=== PATIENT | female | born 1980 | race Caucasian/White ===

== ENCOUNTER → 2017-03-21 | Outpatient (CLI) | payer BC ==
[~2017-03-21] MED LIST: NRT1/35 PO; ONDA4TAB46 PO
--- NOTE | 2017-03-24 07:44 | MAMMOGRAPHY REPORT ---
BILATERAL DIGITAL DIAGNOSTIC MAMMOGRAM TOMOSYNTHESIS WITH CAD AND TARGETED RIGHT ULTRASOUND: 7 CLINICAL HISTORY: The patient reports right superior breast pain for approximately one month. She de nies any palpable lumps or nipple discharge, or other complaints. TECHNIQUE: Breast tomosynthesis in addition to standard 2D mammography was performed. Current study was also evaluated with a Computer Aided Detection (CAD) system. Right CC and MLO 2-D and tomosynthe sis images were obtained. COMPARISON: No prior exams were available for comparison. BREAST COMPOSITION: The tissue of both breasts is heterogeneously dense, which may obscure small mas ses. FINDINGS: There are no suspicious masses, calcifications, or areas of architectural distortion noted in either breast. A few scattered benign-appearing punctate calcifications are noted within the lef t upper outer quadrant. Focal asymmetry in the right upper outer quadrant has the appearance of norm al fibroglandular tissue on the tomosynthesis images. Targeted ultrasound was performed of the area of pain pointed out by the patient, involving the right 11 to 12:00 breast extending from the far superior breast down to the nipple. The background echote xture is markedly heterogeneous, which somewhat decreases the sensitivity of the exam. No suspicious masses or other suspicious sonographic abnormalities were evident in this region on ultrasound. IMPRESSION: ACR BI-RADS CATEGORY 2: BENIGN, TARGETED ULTRASOUND ACR BI-RADS CATEGORY 2: BENIGN No suspicious mammographic or sonographic abnormality to explain right breast pain. There is no mamm ographic or targeted sonographic evidence of malignancy. Recommend clinical follow-up for right aaron st pain, and recommend routine bilateral screening mammograms starting at the age of 40 unless otherw ise clinically indicated. The patient has been verbally notified of the results. Approximately 10% of breast cancers are not detected with mammography. A negative mammographic report should not delay biopsy if a clinically suggestive mass is present. Aviva Alicea M.D. /:03/21/2017 13:58:51 Commercial Housekeeper: Ingrid KOVACS(Marnie)(M), [facility] letter sent: Normal 1/2 BI-RADS Code: ACR BI-RADS Category 2: Benign Ultrasound BI-RADS: ACR BI-RADS Category 2: Benign
== END | disposition home or self-care (01) ==
LOC: C.MAMM 13:15
PROVIDERS: ATTEND Physician Assistant
DX: N64.4 Mastodynia (principal)

== ENCOUNTER → 2017-05-07 | Outpatient (CLI) | payer BC ==
--- NOTE | 2017-05-07 18:29 | DIAGNOSTIC IMAGING REPORT ---
CHEST 2 VIEWS ROUTINE CLINICAL HISTORY: R07.89, R05 chest pain. Dyspnea. COMPARISON STUDY: 10/02/2015 FINDINGS: The bones soft tissues and hemidiaphragms are normal. The cardiomediastinal silhouette is normal. The lungs are clear. The pulmonary vasculature is normal. IMPRESSION: Negative chest. The above report was generated using voice recognition software. It may contain grammatical, syntax or spelling errors. Electronically signed by: Cl Ledesma M.D. 05/07/2017 6:28 PM Dictated Date/Time: 05/07/2017 6:28 PM
== END | disposition home or self-care (01) ==
LOC: C.RAD 18:03
PROVIDERS: ATTEND Physician Assistant Surgical
DX: R07.89 Other chest pain (principal); R05 Cough

== ENCOUNTER → 2017-08-06 | Outpatient (CLI) | payer BC | END | disposition home or self-care (01) | LOC: C.PAPS 13:52 | PROVIDERS: ATTEND Obstetrics & Gynecology | DX: Z01.419 Encounter for gynecological examination (general) (routine) without abnormal findings (principal) ==

== ENCOUNTER 2022-06-15 13:50 | Inpatient (IN) ==
[2022-06-15] MEDS ORDERED: SODIUM CHLORIDE 0.9% 500 ML IV STA (13:58)
[2022-06-15] MEDS ORDERED: ONDANSETRON INJ 2 MG/ML 2 ML VIAL IV STA ×3 (13:58→18:12)
[2022-06-15 14:57] LABS: Basophils # (auto) 0.08 K/uL (0-0.2); Basophils % (auto) 0.3 %; Eosinophils # (auto) 0.06 K/uL (0-0.50); Eosinophils % (auto) 0.3 %; Hematocrit (blood only) 52.3 % (34.1-44.9); Hemoglobin 16.9 g/dl (12.0-16.0); Immature Granulocytes # (auto) 0.57 K/uL (0.00-0.02); Immature Granulocytes % (auto) 2.4 %; Lymphocytes # (auto) 3.45 K/uL (1.2-3.4); Lymphocytes % (auto) 14.7 %; Mean Corpuscular Hemoglobin 26.7 pg (25.0-34.0); Mean Corpuscular Hgb Conc 32.3 g/dL (32.0-36.0); Mean Corpuscular Volume 82.6 fL (80.0-100.0); Mean Platelet Volume 10.2 fL (9.4-12.3); Monocytes # (auto) 0.74 K/uL (0.24-0.82); Monocytes % (auto) 3.2 %; Neutrophils # (auto) 18.59 K/uL (1.4-6.5); Neutrophils % (auto) 79.1 %; Platelet Count 470 K/uL (130-400); RDW Coefficient of Variation 13.3 % (11.5-14.5); RDW Standard Deviation 39.1 fL (36.4-46.3); Red Blood Count 6.33 M/uL (3.93-5.22); White Blood Count 23.49 K/ul (4.8-10.8)
[2022-06-15 15:20] LABS: Albumin Level 4.4 gm/dl (3.4-5.0); BUN Creatinine Ratio 13.6 (10-20); Bilirubin,Total 0.6 mg/dl (0.2-1.0); Calcium 10.1 mg/dl (8.5-10.1); Creatinine Clr Calc Pharmacy 93.7 ml/min; Est GFR (African American) 93.9 ml/min; Globulin 4.2 gm/dl (2.5-4.0); Potassium 4.2 mmol/L (3.5-5.1); Total Protein 8.6 gm/dl (6.0-8.3)
[2022-06-15] MEDS ORDERED: SODIUM CHLORIDE 0.9% 1000ML 1,000 ML IV ONE (16:11)
[2022-06-15] MEDS ORDERED: MoRPHine SULFATE 10 MG/ML CARP/VIAL IV STA ×2 (16:11→18:12)
[2022-06-15] MEDS ORDERED: MoRPHine SULFATE 4 MG/ML 1 ML CARP\\VIAL ONE ×2 (16:18→18:20)
[2022-06-15] MEDS ORDERED: MoRPHine SULFATE 2 MG/ML CARP ONE ×2 (16:18→18:20)
--- NOTE | 2022-06-15 16:31 | Emergency Department Note ---
Impression & Plan Abdominal pain, Pancreatitis, Leukocytosis ED Provider Note NAME: SHRUTHI DIAZ AGE: 42 SEX: F : 1980 ARRIVES VIA: Ambulance INFORMANT: Patient ED PROVIDER(S): Missael Villegas DO CHIEF COMPLAINT: abdominal pain HPI: Patient is a 40-year-old female who presents to the ER for periumbilical abdominal pain which started around 1 PM today. She admits to history of pancreatitis. She does have a history of cholecystectomy. She admits to nausea and vomiting. She cannot keep anything down. Pain is a 9 out of 10. Radiates through to the back. Denies any dysuria, urgency, or frequency. No vaginal bleeding or vaginal discharge. No other exacerbating or remitting factors. No trauma. Pain is constant and unremitting. ROS: See above HPI for pertinent positives & negatives. A total of 10 systems reviewed and were otherwise negative. PAST MEDICAL HISTORY:See Below PAST SURGICAL HISTORY:See Below FAMILY HISTORY:See Below SOCIAL HISTORY:See Below HOME MEDICATIONS:See Below ALLERGIES:See Below VITALS:See Below PHYSICAL EXAMINATION: GENERAL: Sitting up in bed, alert, moderate distress holding abdomen EYE EXAM: normal conjunctiva. OROPHARYNX: mucous membranes are dry NECK: supple, no nuchal rigidity, no adenopathy, non-tender LUNGS: Clear to auscultation. Normal chest wall mechanics HEART: no murmurs, S1 normal and S2 normal ABDOMEN: abdomen soft, non-tender, normo-active bowel sounds, no masses, no rebound or guarding. UPPER EXTREMITIES: upper extremities are grossly normal. LOWER EXTREMITIES: No pitting edema. NEURO EXAM: Normal sensorium, cranial nerves II-XII grossly intact, normal speech, no gross weakness of arms, no gross weakness of legs. MEDICAL DECISION MAKING: Patient is a 42-year-old female who presents ER for abdominal pain associate with nausea vomiting with a history of pancreatitis that feels the same. IV was established blood work was obtained. Labs show leukocytosis of 23,000. Hemoglobin was elevated at 16 which I favor both are elevated secondary to vomiting. BMP on LFTs bilirubin was unremarkable. Lipase was normal. CT shows duodenitis versus pancreatitis I do favor as this consistent with her previous bouts of pancreatitis per the patient that is the most likely cause. She was given IV fluids and IV morphine x2. She was updated at bedside. She was given Zofran as well. She was given a dose of Rocephin due to leukocytosis although again I favor secondary from the vomiting. She was discussed with the hospitalist for further evaluation Dr. Ferris. Triage Nursing notes reviewed. Limited review of prior medical records performed Vital Signs: reviewed and remarkable for tachy Differential diagnosis: Differential diagnoses includes but is not limited to gastritis, peptic ulcer disease, GERD, gallbladder disease, pancreatitis, small bowel obstruction, acute coronary syndrome, pericarditis, ischemic bowel, irritable bowel disease, irritable bowel syndrome, appendicitis, diverticulitis, malignancy, hernia, urinary tract infection, torsion, /ectopic (if female), perforation, trauma, infectious. ER treatment provided: See below Diagnostics interpreted by me: ECG: none Cardiac Monitoring: An order was placed for continuous cardiac monitoring. The monitor shows a rate of 101 with sinus rhythm. Laboratory studies: As stated above and show below. Imaging studies: CT abdomen pelvis as described above Consultation(s): none Procedures: none Critical Care: None Past Med/Surg History Medical History (Updated 06/15/22 @ 20:26 by Missael Villegas DO) Anxiety Chronic tonsillitis and adenoiditis H/O acute pancreatitis History of pancreatitis History of varicella IBS (irritable bowel syndrome) Obesity Sphincter of Oddi dysfunction Viral meningitis 2010 Surgical History (Updated 06/15/22 @ 18:17 by Abi Moreira PA-C) H/O endoscopic retrograde cholangiopancreatography H/O oral surgery WISDOM TEETH History of colonoscopy History of esophagogastroduodenoscopy (EGD) History of oophorectomy History of tonsillectomy and adenoidectomy 08/30/21-Dr. Becker History of tubal ligation S/P cholecystectomy HX Family History Grandfather (Paternal) Pancreatic cancer Mother Diabetes COPD (chronic obstructive pulmonary disease) Kidney failure Heart failure Father Coronary heart disease Denies family history of Ovarian cancer Breast cancer Colorectal cancer Social History Smoking Status: Never smoker Second Hand Exposure: No; Hx Alcohol Use: Yes Alcohol type: beer and wine Hx Substance Use: No Preferred Language: Somali Communication Ability: Effective Wire Rope Sling Maker Required: No Beliefs That Will Affect Care: None Current Living Situation: Spouse and Family Feels Safe at Home: Yes Assistive Devices: Contacts and Glasses Allergies Allergies Allergy/AdvReac Type Severity Reaction Status Date / Time chlordiazepoxide Allergy Intermediate facial Verified 10/23/21 13:09 swelling latex Allergy Intermediate ITCHING Verified 10/23/21 13:09 AND SKIN REDNESS ranitidine Allergy Intermediate facial Verified 10/23/21 13:09 swelling egg Allergy Unknown PT UNSURE Verified 10/23/21 13:09 REACTION ; TESTED + EGG ALLERGY ON ALLERGY TESTING piperacillin Allergy Unknown PT UNSURE Verified 10/23/21 13:09 ABOUT THIS, NOT SURE IF ALLERGIC tazobactam Allergy Unknown PT UNSURE Verified 10/23/21 13:09 ABOUT THIS, NOT SURE IF ALLERGIC erythromycin base AdvReac Mild GI UPSET Verified 10/23/21 13:09 Home Meds Home Medications Medication Instructions Recorded Confirmed escitalopram oxalate 10 mg tablet 20 mg PO QPM 10/13/19 06/15/22 (Lexapro) multivitamin 1 cap PO QAM 08/15/21 06/15/22 Lactobacillus acidophilus 10 10,000 mmu cells PO DAILY 06/15/22 06/15/22 billion cell capsule (Probiotic) Results & Data (ED) Vital Signs Vital Signs - 24 hr 06/15/22 13:56 06/15/22 14:54 06/15/22 15:17 Temperature 37.2 C Temperature Source Oral Pulse Rate 118 H Pulse Rate [Apical] 106 H 96 H Pulse Rhythm Regular Pulse Rhythm [Apical] Regular Pulse Strength Normal Pulse Strength [Apical] Normal Respiratory Rate 20 22 18 Respiratory Effort / Characteristics Non-Labored Spontaneous Non-Labored Spontaneous Respiratory Depth Normal Normal Respiratory Pattern Regular Regular Blood Pressure 132/88 Blood Pressure [Right Arm] 133/105 H 131/98 Blood Pressure Mean 102 Blood Pressure Mean [Right Arm] 114 109 Blood Pressure Position Sitting Blood Pressure Position [Right Arm] Sitting Pulse Oximetry 96 98 99 Oxygen Delivery Method Room Air Room Air Room Air Sepsis Recent Fever Within 48 Hours No Sepsis New/Unexplained Change in Mental Status No Sepsis Action Taken by Nursing No Action Required 06/15/22 16:02 06/15/22 16:26 06/15/22 17:21 Temperature Temperature Source Pulse Rate Pulse Rate [Apical] 108 H 108 H 116 H Pulse Rhythm Pulse Rhythm [Apical] Pulse Strength Pulse Strength [Apical] Respiratory Rate 18 18 20 Respiratory Effort / Characteristics Respiratory Depth Respiratory Pattern Blood Pressure Blood Pressure [Right Arm] 123/93 123/93 139/91 Blood Pressure Mean Blood Pressure Mean [Right Arm] 103 103 107 Blood Pressure Position Blood Pressure Position [Right Arm] Pulse Oximetry 98 98 96 Oxygen Delivery Method Room Air Room Air Room Air Sepsis Recent Fever Within 48 Hours Sepsis New/Unexplained Change in Mental Status Sepsis Action Taken by Nursing 06/15/22 18:09 Temperature Temperature Source Pulse Rate Pulse Rate [Apical] 104 H Pulse Rhythm Pulse Rhythm [Apical] Pulse Strength Pulse Strength [Apical] Respiratory Rate 18 Respiratory Effort / Characteristics Respiratory Depth Respiratory Pattern Blood Pressure Blood Pressure [Right Arm] 123/73 Blood Pressure Mean Blood Pressure Mean [Right Arm] 89 Blood Pressure Position Blood Pressure Position [Right Arm] Pulse Oximetry 96 Oxygen Delivery Method Room Air Sepsis Recent Fever Within 48 Hours Sepsis New/Unexplained Change in Mental Status Sepsis Action Taken by Nursing Laboratory Data Result diagrams: 06/15/22 14:30 06/15/22 14:30 Lab Results 06/15/22 06/15/22 06/15/22 Range/Units 14:30 14:30 16:25 WBC 23.49 H (4.8-10.8) K/ul RBC 6.33 H (3.93-5.22) M/uL Hgb 16.9 H (12.0-16.0) g/dl Hct 52.3 H (34.1-44.9) % MCV 82.6 (80.0-100.0) fL MCH 26.7 (25.0-34.0) pg MCHC 32.3 (32.0-36.0) g/dL RDW Std Deviation 39.1 (36.4-46.3) fL RDW Coeff of Ann Marie 13.3 (11.5-14.5) % Plt Count 470 H (130-400) K/uL MPV 10.2 (9.4-12.3) fL Immature Gran % (Auto) 2.4 % Neut % (Auto) 79.1 % Lymph % (Auto) 14.7 % Pershing % (Auto) 3.2 % Eos % (Auto) 0.3 % Baso % (Auto) 0.3 % Neut # (Auto) 18.59 H (1.4-6.5) K/uL Lymph # (Auto) 3.45 H (1.2-3.4) K/uL Pershing # (Auto) 0.74 (0.24-0.82) K/uL Eos # (Auto) 0.06 (0-0.50) K/uL Baso # (Auto) 0.08 (0-0.2) K/uL Immature Gran # (Auto) 0.57 H (0.00-0.02) K/uL Sodium 136 (136-145) mmol/L Potassium 4.2 (3.5-5.1) mmol/L Chloride 100 (98-107) mmol/L Carbon Dioxide 26 (21-32) mmol/L Anion Gap 10 (3-11) BUN 12 (6-23) mg/dl Creatinine 0.88 (0.6-1.2) mg/dl Est Cr Clr Drug Dosing 93.7 ml/min Est GFR ( Amer) 93.9 ml/min Est GFR (Non-Af Amer) 81.0 ml/min BUN/Creatinine Ratio 13.6 (10-20) Glucose 136 H (70-99(Fasting)) mg/dl Lactate (0.4-2.0) mmol/L Calcium 10.1 (8.5-10.1) mg/dl Total Bilirubin 0.6 (0.2-1.0) mg/dl AST 26 (13-39) U/L ALT 28 (7-52) U/L Alkaline Phosphatase 116 H (34-104) U/L Total Protein 8.6 H (6.0-8.3) gm/dl Albumin 4.4 (3.4-5.0) gm/dl Globulin 4.2 H (2.5-4.0) gm/dl Albumin/Globulin Ratio 1.0 (0.9-2) Lipase 47 (11-82) U/L Urine Color Dark Yellow Urine Appearance Cloudy A (Clear) Urine pH 5.0 (4.5-7.5) Ur Specific [place] 1.027 (1.000-1.030) Urine Protein 1+ H (Negative) Urine Glucose (UA) Negative (Negative) Urine Ketones Trace H (Negative) Urine Blood Negative (Negative) Urine Nitrite Negative (Negative) Urine Bilirubin 1+ H (Negative) Urine Urobilinogen Negative (Negative) Ur Leukocyte Esterase Trace H (Negative) Urine WBC (Auto) 1-5 (0-5) /hpf Urine RBC (Auto) 5-10 H (0-4) /hpf U Hyaline Cast (Auto) 10-30 H (0-5) /lpf U Epithel Cells (Auto) >30 H (0-5) /lpf Urine Bacteria (Auto) Negative (Negative) POC Ur Test (NEG) SARS-CoV-2, RNA, NAAT (NEGATIVE) 06/15/22 06/15/22 06/15/22 Range/Units 16:25 18:15 18:34 WBC (4.8-10.8) K/ul RBC (3.93-5.22) M/uL Hgb (12.0-16.0) g/dl Hct (34.1-44.9) % MCV (80.0-100.0) fL MCH (25.0-34.0) pg MCHC (32.0-36.0) g/dL RDW Std Deviation (36.4-46.3) fL RDW Coeff of Ann Marie (11.5-14.5) % Plt Count (130-400) K/uL MPV (9.4-12.3) fL Immature Gran % (Auto) % Neut % (Auto) % Lymph % (Auto) % Pershing % (Auto) % Eos % (Auto) % Baso % (Auto) % Neut # (Auto) (1.4-6.5) K/uL Lymph # (Auto) (1.2-3.4) K/uL Pershing # (Auto) (0.24-0.82) K/uL Eos # (Auto) (0-0.50) K/uL Baso # (Auto) (0-0.2) K/uL Immature Gran # (Auto) (0.00-0.02) K/uL Sodium (136-145) mmol/L Potassium (3.5-5.1) mmol/L Chloride (98-107) mmol/L Carbon Dioxide (21-32) mmol/L Anion Gap (3-11) BUN (6-23) mg/dl Creatinine (0.6-1.2) mg/dl Est Cr Clr Drug Dosing ml/min Est GFR ( Amer) ml/min Est GFR (Non-Af Amer) ml/min BUN/Creatinine Ratio (10-20) Glucose (70-99(Fasting)) mg/dl Lactate 0.9 (0.4-2.0) mmol/L Calcium (8.5-10.1) mg/dl Total Bilirubin (0.2-1.0) mg/dl AST (13-39) U/L ALT (7-52) U/L Alkaline Phosphatase (34-104) U/L Total Protein (6.0-8.3) gm/dl Albumin (3.4-5.0) gm/dl Globulin (2.5-4.0) gm/dl Albumin/Globulin Ratio (0.9-2) Lipase (11-82) U/L Urine Color Urine Appearance (Clear) Urine pH (4.5-7.5) Ur Specific [place] (1.000-1.030) Urine Protein (Negative) Urine Glucose (UA) (Negative) Urine Ketones (Negative) Urine Blood (Negative) Urine Nitrite (Negative) Urine Bilirubin (Negative) Urine Urobilinogen (Negative) Ur Leukocyte Esterase (Negative) Urine WBC (Auto) (0-5) /hpf Urine RBC (Auto) (0-4) /hpf U Hyaline Cast (Auto) (0-5) /lpf U Epithel Cells (Auto) (0-5) /lpf Urine Bacteria (Auto) (Negative) POC Ur Test NEG (NEG) SARS-CoV-2, RNA, NAAT NEGATIVE (NEGATIVE) Administered Medications Discontinued Medications Sodium Chloride (Nss) 500 mls @ 999 mls/hr IV .Q31M STA Stop: 06/15/22 14:28 Last Infusion: 06/15/22 15:54 Dose: 0 mls/hr Documented By: Admin: 06/15/22 14:49 Dose: 999 mls/hr Documented By: HUMBERTO Sodium Chloride (Nss 1000ml) 1,000 mls @ 999 mls/hr IV .Q1H1M ONE Stop: 06/15/22 17:11 Last Infusion: 06/15/22 18:11 Dose: 0 mls/hr Documented By: Admin: 06/15/22 16:22 Dose: 999 mls/hr Documented By: MAIRA Ceftriaxone Sodium (Rocephin) 2,000 mg in 70 mls @ 140 mls/hr IV NOW STA Stop: 06/15/22 18:23 Last Admin: 06/15/22 20:01 Dose: Not Given Documented By: KENTRELL Metronidazole (Flagyl) 500 mg in 100 mls @ 100 mls/hr IV ONE ONE Stop: 06/15/22 20:14 Last Admin: 06/15/22 20:01 Dose: 100 mls/hr Documented By: KENTRELL Ioversol (Optiray 350 100ml) 89 ml IV ONCE ONE Stop: 06/15/22 16:34 Last Admin: 06/15/22 16:33 Dose: 89 ml Documented By: KOSTAS Morphine Sulfate (Morphine Sulfate 10 Mg/Ml Carp/Vial) 6 mg IV NOW STA Stop: 06/15/22 16:12 Last Admin: 06/15/22 16:22 Dose: Not Given Documented By: MAIRA Morphine Sulfate (Morphine Sulfate 4 Mg/Ml 1 Ml Carp\Vial) Confirm Administered Dose 4 mg .ROUTE .STK-MED ONE Stop: 06/15/22 16:19 Last Admin: 06/15/22 16:22 Dose: 4 mg Documented By: MAIRA Morphine Sulfate (Morphine Sulfate 2 Mg/Ml Carp) Confirm Administered Dose 2 mg .ROUTE .STK-MED ONE Stop: 06/15/22 16:19 Last Admin: 06/15/22 16:22 Dose: 2 mg Documented By: MAIRA Morphine Sulfate (Morphine Sulfate 10 Mg/Ml Carp/Vial) 6 mg IV NOW STA Stop: 06/15/22 18:13 Last Admin: 06/15/22 18:22 Dose: Not Given Documented By: MAIRA Morphine Sulfate (Morphine Sulfate 4 Mg/Ml 1 Ml Carp\Vial) Confirm Administered Dose 4 mg .ROUTE .STK-MED ONE Stop: 06/15/22 18:21 Last Admin: 06/15/22 18:22 Dose: 4 mg Documented By: MAIRA Morphine Sulfate (Morphine Sulfate 2 Mg/Ml Carp) Confirm Administered Dose 2 mg .ROUTE .STK-MED ONE Stop: 06/15/22 18:21 Last Admin: 06/15/22 18:22 Dose: 2 mg Documented By: MAIRA Ondansetron HCl (Ondansetron Inj 2 Mg/Ml 2 Ml Vial) 4 mg IV NOW STA Stop: 06/15/22 13:59 Last Admin: 06/15/22 14:49 Dose: 4 mg Documented By: HUMBERTO Ondansetron HCl (Ondansetron Inj 2 Mg/Ml 2 Ml Vial) 4 mg IV NOW STA Stop: 06/15/22 16:12 Last Admin: 06/15/22 16:22 Dose: 4 mg Documented By: MAIRA Ondansetron HCl (Ondansetron Inj 2 Mg/Ml 2 Ml Vial) 4 mg IV NOW STA Stop: 06/15/22 18:13 Last Admin: 06/15/22 18:22 Dose: 4 mg Documented By: MAIRA Imaging Data Radiologist's Impression: Abdomen/Pelvis CT 06/15/22 16:11 CT abd pelvis IV con only CLINICAL HISTORY: ? Pancreatitis TECHNIQUE: Helical axial images of the abdomen and pelvis were obtained and d isplayed. Automated dose lowering techniques and/or adjustment according to patient size were utilized for this exam. This exam was performed with intravenous contrast. CT DOSE: 780.54 mGy.cm COMPARISON: Comparison is made to CT abdomen pelvis 12/31/2013 FINDINGS: Lower chest: No acute abnormality Liver: Unremarkable. No focal lesions are seen. Gallbladder and biliary tree: Patient is status post cholecystectomy. No intra- or extrahepatic biliary ductal dilation. Pancreas: The pancreatic body and tail are unremarkable. No definite edema is seen in the pancreatic head. Spleen: Unremarkable. Adrenals: Unremarkable. Kidneys and ureters: Unremarkable. Bladder: Limited evaluation due to underdistention. Reproductive organs: Unremarkable. Bowel: Unremarkable appearance of the bowel. The appendix is normal. There is hypoenhancement and questionable prominence of the duodenal wall, similar in appearance to prior exam. Lymph nodes Retroperitoneal: Unremarkable. Pelvic: Unremarkable. Mesenteric: Unremarkable. Peritoneum: Trace pelvic free fluid is seen. Fat stranding is seen in the region of the duodenum. Vessels: Unremarkable. Abdominal wall: Unremarkable. Bones: Minimal osteophyte formation is noted. IMPRESSION: 1. Nonspecific trace free fluid throughout the abdomen. No edema or fat stranding is seen about the pancreatic body and tail. Findings are similar nonspecific but may represent duodenitis or head pancreatitis. 2. No evidence of bowel obstruction, appendicitis, or other acute abnormality. 3. Hepatic steatosis. ACT 112: Negative or not required by law. Electronically signed by: Carlos Bradford M.D. 06/15/2022 5:24 PM Discharge Plan Visit Data Chief Complaint: Abdominal Pain Stated Complaint: abdominal pain ED Provider: Missael Villegas Discharge Problem: Abdominal pain, Pancreatitis, Leukocytosis Forms Stand Alone Forms: [facility] Prescriptions Prescriptions: No Action escitalopram oxalate [Lexapro] 10 mg tablet 20 mg PO QPM multivitamin Capsule 1 cap PO QAM Probiotic 10 billion cell Capsule 10,000 mmu cells PO DAILY Referrals Referrals: Nohelia Ramos DO [Primary Care Provider] -
[2022-06-15] MEDS ORDERED: OPTIRAY 350 100ml IV ONE (16:33)
[2022-06-15 16:41] LABS: Appearance Urine Cloudy (Clear); Bacteria Urine Automated Negative (Negative); Blood Urine Negative (Negative); Color Urine Dark Yellow; Epithelial Cell Urine Auto >30 /lpf (0-5); Glucose Urine UA Negative (Negative); Ketones Urine Trace (Negative); Leukocyte Esterase Urine Trace (Negative); Nitrite Urine Negative (Negative); Protein Urine 1+ (Negative); Specific Gravity Urine 1.027 (1.000-1.030); Urobilinogen Urine Negative (Negative)
[2022-06-15 17:00] LABS: Bilirubin Urine 1+ (Negative)
--- NOTE | 2022-06-15 17:27 | CT Scan Report ---
CT abd pelvis IV con only CLINICAL HISTORY: ? Pancreatitis TECHNIQUE: Helical axial images of the abdomen and pelvis were obtained and displayed. Automated dose lowering techniques and/or adjustment according to patient size were utilized for this exam. This e xam was performed with intravenous contrast. CT DOSE: 780.54 mGy.cm COMPARISON: Comparison is made to CT abdomen pelvis 12/31/2013 FINDINGS: Lower chest: No acute abnormality Liver: Unremarkable. No focal lesions are seen. Gallbladder and biliary tree: Patient is status post cholecystectomy. No intra- or extrahepatic bilia ry ductal dilation. Pancreas: The pancreatic body and tail are unremarkable. No definite edema is seen in the pancreatic head. Spleen: Unremarkable. Adrenals: Unremarkable. Kidneys and ureters: Unremarkable. Bladder: Limited evaluation due to underdistention. Reproductive organs: Unremarkable. Bowel: Unremarkable appearance of the bowel. The appendix is normal. There is hypoenhancement and que stionable prominence of the duodenal wall, similar in appearance to prior exam. Lymph nodes Retroperitoneal: Unremarkable. Pelvic: Unremarkable. Mesenteric: Unremarkable. Peritoneum: Trace pelvic free fluid is seen. Fat stranding is seen in the region of the duodenum. Vessels: Unremarkable. Abdominal wall: Unremarkable. Bones: Minimal osteophyte formation is noted. IMPRESSION: 1. Nonspecific trace free fluid throughout the abdomen. No edema or fat stranding is seen about the pancreatic body and tail. Findings are similar nonspecific but may represent duodenitis or head pancr eatitis. 2. No evidence of bowel obstruction, appendicitis, or other acute abnormality. 3. Hepatic steatosis. ACT 112: Negative or not required by law. Electronically signed by: Carlos Bradford M.D. 06/15/2022 5:24 PM
[2022-06-15] MEDS ORDERED: cefTRIAXone SODIUM 2,000 MG/70 ML BAG IV STA (17:54)
--- NOTE | 2022-06-15 18:14 | History & Physical Report ---
Date of Service June 15, 2022 Assessment & Plan (1) Sepsis: (2) Abdominal pain: (3) Sphincter of Oddi dysfunction: (4) History of pancreatitis: (5) IBS (irritable bowel syndrome): (6) Anxiety: Plan This is a 42-year-old female with PMH of duodenal papillary stenosis, IBS, ga stroparesis and other medical problems listed below who presents with abdominal pain starting at 1 PM this afternoon. 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 Fletcher). Has not been seen by [facility] since 2013 since symptoms resolved at that point. Sepsis Epigastric pain H/o sphincter of oddi dysfunction s/p sphincterotomy in 2012 Nausea and vomiting Sudden onset epigastric abdominal pain starting this afternoon with associated nausea and vomiting Afebrile, HR 110s, WBC 23.49K, hgb 16.9 and plt 470 consistent with hemoconcentration 2/2 dehydration. Lactate wnl In ED, given 12mg morphine total during stay - pain now controlled at 310. Also received 2 L NSS and zofran x 3 CT abd/pelvis with nonspecific trace free fluid throughout the abdomen. No edema or fat stranding is seen about the pancreatic body and tail. Findings are similar nonspecific but may represent duodenitis or head pancreatitis Blood cultures pending Keeping NPO except ice chips and sips, LR @ 150 ml/hr, empiric Cefepime and Flagyl, antiemetics and analgesics PRN Routine gastroenterology consult Anxiety Lexapro, PRN Buspar at home DVT Ppx: SCDs Code status: FULL PCP: Rachel Dispo: Admitted to [facility] tele Patient seen in collaboration with Dr. Sánchez. Please see addendum. History of Present Illness Chief Complaint: Abdominal pain Primary Care Provider: Nohelia Ramos, This is a 42-year-old female with PMH of duodenal papillary stenosis, IBS, gastroparesis and other medical problems listed below who presents with abdominal pain starting at 1 PM this afternoon. 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 Fletcher). Has not been seen by [facility] since 2013 because symptoms completely resolved at that point in time. Today around 1 PM, developed severe epigastric pain described as a burning and stabbing pain that was nonradiating but associated with nausea and vomiting. Pain is very similar to previous episodes of duodenitis prior to sphincterotomy in 2012. Denies any fever, chills, headache, chest pain, shortness of breath, dysuria, diarrhea or constipation. Has not had alcohol to drink in a few weeks and is an occasional drinker at baseline. History of cholecystectomy. Allergies Allergy/AdvReac Type Severity Reaction Status Date / Time chlordiazepoxide Allergy Intermediate facial Verified 10/23/21 13:09 swelling latex Allergy Intermediate ITCHING Verified 10/23/21 13:09 AND SKIN REDNESS ranitidine Allergy Intermediate facial Verified 10/23/21 13:09 swelling egg Allergy Unknown PT UNSURE Verified 10/23/21 13:09 REACTION ; TESTED + EGG ALLERGY ON ALLERGY TESTING piperacillin Allergy Unknown PT UNSURE Verified 10/23/21 13:09 ABOUT THIS, NOT SURE IF ALLERGIC tazobactam Allergy Unknown PT UNSURE Verified 10/23/21 13:09 ABOUT THIS, NOT SURE IF ALLERGIC erythromycin base AdvReac Mild GI UPSET Verified 10/23/21 13:09 Home Medications Medication Instructions Recorded Confirmed Type escitalopram oxalate 10 mg tablet 20 mg PO QPM 10/13/19 06/15/22 History (Lexapro) multivitamin 1 cap PO QAM 08/15/21 06/15/22 History Lactobacillus acidophilus 10 10,000 mmu cells PO DAILY 06/15/22 06/15/22 History billion cell capsule (Probiotic) Past Med/Surg History Medical History (Updated 06/15/22 @ 20:26 by Missael Villegas DO) Anxiety Chronic tonsillitis and adenoiditis H/O acute pancreatitis History of pancreatitis History of varicella IBS (irritable bowel syndrome) Obesity Sphincter of Oddi dysfunction Viral meningitis 2010 Surgical History (Updated 06/15/22 @ 18:17 by Abi Moreira PA-C) H/O endoscopic retrograde cholangiopancreatography H/O oral surgery WISDOM TEETH History of colonoscopy History of esophagogastroduodenoscopy (EGD) History of oophorectomy History of tonsillectomy and adenoidectomy 08/30/21-Dr. Becker History of tubal ligation S/P cholecystectomy HX Family History Grandfather (Paternal) Pancreatic cancer Mother Diabetes COPD (chronic obstructive pulmonary disease) Kidney failure Heart failure Father Coronary heart disease Denies family history of Ovarian cancer Breast cancer Colorectal cancer Social History Smoking Status: Never smoker Second Hand Exposure: No; Hx Alcohol Use: Yes Alcohol type: beer Hx Substance Use: No Preferred Language: Citizen Of [place] Communication Ability: Effective Furniture Arranger Required: No Beliefs That Will Affect Care: None Current Living Situation: Spouse Other Information That Helps Us Care for You: No Feels Safe at Home: Yes Safety Concerns: Feels Safe At This Time Assistive Devices: Glasses Review of Systems Review of Systems: At least ten systems reviewed and negative except as noted in the HPI. Physical Exam Physical Exam: General Appearance: WD/WN, vitals as above, NAD, sitting up in bed, pleasant, conversing easily Head: normocephalic, atraumatic Eyes: normal inspection, PERRL, conjunctivae normal, anicteric sclerae ENT: external ear and nose normal, dry mucous membranes of oropharynx Neck: normal visual inspection, trachea midline, no thyromegaly Respiratory: normal respiratory effort, lungs clear to auscultation, no wheeze, rales, rhonchi. No accessory muscle use Cardiovascular: tachycardic rate, regular rhythm, no murmur, normal peripheral pulses, no BLE edema. Vessels: no JVD Chest: normal inspection of chest Abdomen/GI: normal bowel sounds, soft, +epigastric TTP, no guarding, no hepatosplenomegaly Extremities/Musculoskeletal: no cyanosis or clubbing, extremities motor strength 5/5 Neurologic: PERRL, EOMI, accommodation nl, no face palsy, no dysarthria, CN's II-XI intact bilaterally and moves all extremities Psychiatric: A+Ox3, euthymic affect Skin: no rashes, normal color, warm/dry Results & Data Results & Data ([facility]) Vital Signs (Past 12 Hours) Vital Signs Temp Pulse Pulse Resp BP BP Pulse Ox 06/15/22 18:09 104 H 18 123/73 96 06/15/22 17:21 116 H 20 139/91 96 06/15/22 16:26 108 H 18 123/93 98 06/15/22 16:02 108 H 18 123/93 98 06/15/22 15:17 96 H 18 131/98 99 06/15/22 14:54 106 H 22 133/105 H 98 06/15/22 13:56 37.2 C 118 H 20 132/88 96 O2 Del Method 06/15/22 18:09 Room Air 06/15/22 17:21 Room Air 06/15/22 16:26 Room Air 06/15/22 16:02 Room Air 06/15/22 15:17 Room Air 06/15/22 14:54 Room Air 06/15/22 13:56 Room Air Laboratory Results Short CBC 06/15/22 Range/Units 14:30 WBC 23.49 H (4.8-10.8) K/ul Hgb 16.9 H (12.0-16.0) g/dl Hct 52.3 H (34.1-44.9) % Plt Count 470 H (130-400) K/uL BMP 06/15/22 14:30 Sodium 136 Potassium 4.2 Chloride 100 Carbon Dioxide 26 BUN 12 Creatinine 0.88 Glucose 136 H Calcium 10.1 Liver Function 06/15/22 Range/Units 14:30 Total Bilirubin 0.6 (0.2-1.0) mg/dl AST 26 (13-39) U/L ALT 28 (7-52) U/L Alkaline Phosphatase 116 H (34-104) U/L Albumin 4.4 (3.4-5.0) gm/dl Urine 06/15/22 Range/Units 16:25 Urine Color Dark Yellow Urine Appearance Cloudy A (Clear) Urine pH 5.0 (4.5-7.5) Ur Specific [place] 1.027 (1.000-1.030) Urine Protein 1+ H (Negative) Urine Glucose (UA) Negative (Negative) Diagnostic Findings Abdomen/Pelvis CT 06/15/22 16:11 CT abd pelvis IV con only CLINICAL HISTORY: ? Pancreatitis TECHNIQUE: Helical axial images of the abdomen and pelvis were obtained and displayed. Automated dose lowering techniques and/or adjustment according to patient size were utilized for this exam. This exam was performed with intravenous contrast. CT DOSE: 780.54 mGy.cm COMPARISON: Comparison is made to CT abdomen pelvis 12/31/2013 FINDINGS: Lower chest: No acute abnormality Liver: Unremarkable. No focal lesions are seen. Gallbladder and biliary tree: Patient is status post cholecystectomy. No intra- or extrahepatic biliary ductal dilation. Pancreas: The pancreatic body and tail are unremarkable. No definite edema is seen in the pancreatic head. Spleen: Unremarkable. Adrenals: Unremarkable. Kidneys and ureters: Unremarkable. Bladder: Limited evaluation due to underdistention. Reproductive organs: Unremarkable. Bowel: Unremarkable appearance of the bowel. The appendix is normal. There is hypoenhancement and questionable prominence of the duodenal wall, similar in ap pearance to prior exam. Lymph nodes Retroperitoneal: Unremarkable. Pelvic: Unremarkable. Mesenteric: Unremarkable. Peritoneum: Trace pelvic free fluid is seen. Fat stranding is seen in the region of the duodenum. Vessels: Unremarkable. Abdominal wall: Unremarkable. Bones: Minimal osteophyte formation is noted. IMPRESSION: 1. Nonspecific trace free fluid throughout the abdomen. No edema or fat stranding is seen about the pancreatic body and tail. Findings are similar nonspecific but may represent duodenitis or head pancreatitis. 2. No evidence of bowel obstruction, appendicitis, or other acute abnormality. 3. Hepatic steatosis. ACT 112: Negative or not required by law. Electronically signed by: Carlos Bradford M.D. 06/15/2022 5:24 PM Supervising Physician Co-Signing Physician Notes 06/16 Please refer to supplemental note Brian Sánchez MD
--- NOTE | 2022-06-15 18:52 | Communication Note ---
Date of Service: June 15, 2022 Attending Addendum: care coordinated with GEOVANNA Moreira please refer to her notes for full details, I agree with her notes patient seen and examined, records reviewed by myself as well on exam, patient seen resting in bed, not in distress states epigastric is pain is much better compared to admission no chest pain, dyspnea, palpitations, dizziness no fever/chills no other symptoms VS noted and reviewed oriented x 3, not in distress, speaks in sentences with no effort nor accessory muscle use normal rate, regular rhythm, no murmurs clear breath sounds bilaterally non distended, soft, very mild tenderness in the epigastric region no bipedal edema, erythema, warmth no neuro deficits all labs noted and reviewed ASSESSMENT AND PLAN Possible Duodenitis History of Sphincter of Oddi Dysfunction ERCP with Biliary and Pancreatic Sphincterotomy Possible Acute Pancreatitis? -- NPO IV analgeisics -- IV LR at 150cc/hr -- IV Cefepime + Flagyl Protoniv IV BID -- follow blood cultures, lipase -- GI consult other diagnoses and plan of care as per GEOVANNA Moreira's notes Brian Sánchez MD
[2022-06-15] MEDS ORDERED: metroNIDAZOLE 500 MG/100 ML BAG IV ONE (19:15)
[2022-06-15] MEDS ORDERED: POLYETHYLENE (MIRALAX) 17 GM PACK PO PRN (21:51)
[2022-06-15] MEDS ORDERED: ACETAMINOPHEN 325 MG TAB PO PRN (21:51)
[2022-06-15] MEDS: LACTATED RINGER'S 1,000 ML IV SCH (22:40)
[2022-06-15] MEDS: HYDROmorphone INJ 0.5 MG/0.5 ML SYR IV PRN (22:42)
[2022-06-15] MEDS: CEFEPIME 2,000 MG in SYRINGE 0 ML IV SCH (22:47)
[2022-06-15] MEDS: PANTOprazole 40 MG in SYRINGE 0 ML IV SCH (22:48)
[2022-06-15] MEDS: ESCITALOPRAM OXALATE 20 MG TAB PO SCH (22:56)
[2022-06-16] MEDS: LORazepam 0.5 MG TAB PO PRN ×2 (00:01→22:43)
[2022-06-16] MEDS: HYDROmorphone INJ 0.5 MG/0.5 ML SYR IV PRN ×5 (02:52→22:43)
[2022-06-16] MEDS: PROMETHAZINE HCL 6.25 MG in SODIUM CHLORIDE 0.9% 50 ML IV PRN ×2 (02:52→15:40)
[2022-06-16] MEDS: metroNIDAZOLE 500 MG/100 ML BAG IV SCH ×3 (04:31→20:05)
[2022-06-16 06:58] LABS: Albumin Globulin Ratio 1.1 (0.9-2); Albumin Level 3.2 gm/dl (3.4-5.0); BUN Creatinine Ratio 13.8 (10-20); Bilirubin,Total 0.5 mg/dl (0.2-1.0); Calcium 8.2 mg/dl (8.5-10.1); Creatinine Clr Calc Pharmacy 100.7 ml/min; Est GFR (African American) 105.4 ml/min; Est GFR (Non-African American) 90.9 ml/min; Globulin 2.9 gm/dl (2.5-4.0); Potassium 3.8 mmol/L (3.5-5.1); Total Protein 6.1 gm/dl (6.0-8.3)
[2022-06-16] MEDS: LACTATED RINGER'S 1,000 ML IV SCH ×2 (07:01→13:19)
[2022-06-16 07:21] LABS: Hematocrit (blood only) 36.6 % (34.1-44.9); Hemoglobin 11.9 g/dl (12.0-16.0); Mean Corpuscular Hgb Conc 32.5 g/dL (32.0-36.0); Mean Corpuscular Volume 83.2 fL (80.0-100.0); Mean Platelet Volume 10.3 fL (9.4-12.3); Platelet Count 264 K/uL (130-400); RDW Coefficient of Variation 13.3 % (11.5-14.5); White Blood Count 13.51 K/ul (4.8-10.8)
[2022-06-16] MEDS ORDERED: Nursing to Pharmacy Communication SCH (07:30)
[2022-06-16] MEDS: ADVANCED PROBIOTIC 1250 MG CAPSULE PO SCH (08:07)
[2022-06-16] MEDS: PANTOprazole 40 MG in SYRINGE 0 ML IV SCH ×2 (08:13→21:05)
[2022-06-16] MEDS: CEFEPIME 2,000 MG in SYRINGE 0 ML IV SCH ×2 (08:17→21:06)
[2022-06-16] MEDS ORDERED: INFLUENZA VIRUS QUAD VACCINE 0.5 ML SYR IM ONE (09:00)
--- NOTE | 2022-06-16 13:11 | Billing Data ---
Date of Service June 16, 2022 Coding Level of Care Code 86131 Inpt Consult Level 3
--- NOTE | 2022-06-16 14:19 | Consultation Report ---
GASTROENTEROLOGY CONSULTATION AGE: 42 SEX: Female. RACE: . ATTENDING PHYSICIAN: Dr. Sánchez. CONSULTING PHYSICIAN: Dr. Alvarez. REASON FOR CONSULTATION: Leukocytosis. History of papillary stenosis. HISTORY OF PRESENT ILLNESS: Torrie Sawyer is a 42-year-old female who presented to the [facility] on 06/15/2022 with complaints of abdominal pain in the periumbilical r egion, which started earlier in the day. She noted the pain was 9/10 in intensity, radiating to her back, and she also noted associated nausea and vomiting as well. She subsequently underwent laborato ry testing and was noted to have an elevated white blood cell count of 23.49. Her hemoglobin and hem atocrit were noted to be 16.9 and 52.3 with a platelet count of 470. Her AST and ALT were normal at 26 and 28 with a bilirubin of 0.6 and alkaline phosphatase of 116. She also underwent a CT scan of t he abdomen and pelvis, which showed nonspecific trace of free fluid throughout the abdomen, though no edema or fat stranding is seen about the pancreatic body and tail. There was questionable nonspecif ic findings, which may represent duodenitis or pancreatitis. There was no evidence of bowel obstruct ion and she was noted to have some hepatic steatosis. It should be noted that she does have a histor y of papillary stenosis and did undergo an ERCP with Dr. Monae with biliary sphincterotomy in the past , though this was several years ago. She was subsequently admitted. She was placed on IV lactated R samira's at 150 mL per hour and was given cefepime and Flagyl therapy as well as Protonix IV b.i.d. B lood cultures were ordered. Lipase level was noted to be normal. She was kept n.p.o. and given IV an algesics as well. At the time that I saw the patient, she was complaining of pain mainly in the uppe r abdomen. Her laboratory studies today did show an improvement in her white blood cell count at 13. 51 and her liver panel remained normal with a normal lipase level. She does ask for narcotic pain me dication and states that she has not had any bowel movements overnight. She further denies any fever s, chills, hematemesis, melena, or hematochezia. She has no further complaints. PAST MEDICAL HISTORY: Significant for pancreatitis sphincter of Oddi dysfunction, anxiety, irritable bowel syndrome, viral meningitis, history of varicella, chronic tonsillitis and adenoiditis. PAST SURGICAL HISTORY: Includes tonsillectomy and adenoidectomy, tubal ligation, cholecystectomy, oo phorectomy. ALLERGIES: CHLORDIAZEPOXIDE, LATEX, RANITIDINE, EGGS, PIPERACILLIN/TAZOBACTAM, AND ERYTHROMYCIN. CURRENT MEDICATIONS: Include Tylenol 650 mg p.o. q. 4 hours, Cefepime 2 g IV q.12, escitalopram 20 m g q.p.m., hydromorphone 0.5 mg IV q.4 p.r.n.,Lactobacillus 2 caps p.o. daily, Ativan 0.5 mg p.o. at b edtime p.r.n. Flagyl 500 mg IV q.8, multivitamin 1 tab p.o. q.a.m., Phenergan 6.25 mg IV q.6 hours, M iraLax 17 g p.o. daily and Protonix 40 mg IV b.i.d. SOCIAL HISTORY: She is . Denies any tobacco use. Does drink beer occasionally. No illicit drug use. FAMILY HISTORY: Negative for GI malignancy or inflammatory bowel disease. REVIEW OF SYSTEMS: Negative x 12 systems review, other than pertinent positives listed in the HPI. PHYSICAL EXAMINATION: VITAL SIGNS: Include a temperature of 37.1, pulse 85, respirations 18, blood pressure 117/79, pulse ox 95% on room air. GENERAL: She is awake, cooperative, in no acute distress. HEAD: Normocephalic, atraumatic. EYES: Pupils equal, round. Extraocular muscles are intact. ENT: External evaluation of ears and nose is normal. Oropharynx is clear. NECK: Soft and supple. CHEST: Clear to auscultation bilaterally. CARDIOVASCULAR: Regular rate and rhythm. ABDOMEN: Soft, tender in the bilateral upper quadrants, nondistended. There is positive bowel sound s. There is no evidence of hepatosplenomegaly. EXTREMITIES: No clubbing, cyanosis, or edema. SKIN: Soft, pink. Good turgor. Laboratory studies and radiographic studies reviewed in the HPI. IMPRESSION: This is a 42-year-old female with a history of pancreatitis sphincter of Oddi dysfunction, status post biliary sphincterotomy in the past, who presents with abdominal pain, nausea , vomiting, and questionable findings of duodenitis versus pancreatitis on CT imaging. PLAN: At the present time, I do not believe that the patient has any need for endoscopic evaluation as she is having no alarm symptoms at present. Her findings on imaging as well as laboratory studies are not showing any evidence of urgent need for endoscopic workup. I would recommend that she be kep t on Protonix 40 mg IV b.i.d. I would advance her diet to clear liquids as tolerated and advance fro m there based on how she responds. I will defer further care to [facility] GI team as they will resum e her care on 06/17/2022. Please contact me directly if you have any acute needs. Once again, thanks for allowing me to participate in the care of this patient. If you have any furth er questions, please do not hesitate contacting me. Job ID: [id number]
[2022-06-16] MEDS: ONDANSETRON INJ 2 MG/ML 2 ML VIAL IV PRN (14:37)
--- NOTE | 2022-06-16 16:41 | Hospitalist Progress Note ---
Date of Service June 16, 2022 Assessment & Plan (1) Sepsis: (2) Abdominal pain: (3) Sphincter of Oddi dysfunction: (4) History of pancreatitis: (5) IBS (irritable bowel syndrome): (6) Anxiety: Plan Primary service notes with addendum: This is a 42-year-old female with PMH of duodenal papillary stenosis, IBS, gastroparesis and other medical problems listed below who presents with abdominal pain starting at 1 PM this afternoon. 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 Fletcher). Has not been seen by [facility] since 2013 since symptoms resolved at that point. Abdominal pain, nausea and vomiting Possible duodenitis History of sphincter of Oddi dysfunction Possible acute pancreatitis Possible sepsis secondary to above Sudden onset epigastric abdominal pain starting this afternoon with associated nausea and vomiting Afebrile, HR 110s, WBC 23.49K, hgb 16.9 and plt 470 consistent with hemoconcentration 2/2 dehydration. Lactate wnl In ED, given 12mg morphine total during stay - pain now controlled at 11/01. Also received 2 L NSS and zofran x 3 CT abd/pelvis with nonspecific trace free fluid throughout the abdomen. No edema or fat stranding is seen about the pancreatic body and tail. Findings are similar nonspecific but may represent duodenitis or head pancreatitis Blood cultures pending Keeping NPO except ice chips and sips, LR @ 150 ml/hr, empiric Cefepime and Flagyl, antiemetics and analgesics PRN Routine gastroenterology consult 06/16 Patient is hemodynamically stable, afebrile Blood cultures: Pending LFTs okay, lipase normal GI consulted-no urgent EGD recommended for today Continue Protonix IV twice daily Continue cefepime plus Flagyl Clear liquid diet, IV fluids Monitor closely Anxiety Lexapro, PRN Buspar at home DVT Ppx: SCDs Code status: FULL PCP: Rachel Dispo: Plan to discharge home medically stable, cleared by GI plan of care discussed with patient in detail and at length all questions answered She is understanding, agreeable, comfortable with the plan of care Admission and Anticipated Discharge Date Admission Date: June 15, 2022 Subjective Follow-up for possible duodenitis, sphincter of Oddi dysfunction, etc. Seen sitting up in bed, awake and alert Not in distress States abdominal pain is better today compared to yesterday Still requiring IV analgesics but no management No nausea, vomiting Positive flatus, no BM No fevers or chills no chest pain, dyspnea, palpitations, dizziness No other symptom Review of Systems Review of Systems: all noted and negative except for above Results & Data Results & Data ([facility]) Vital Signs (Past 12 Hours) Vital Signs Temp Pulse Pulse Pulse Resp BP BP 06/16/22 16:00 37.1 C 82 18 106/68 06/16/22 07:00 74 06/16/22 12:00 37.1 C 85 18 117/79 06/16/22 06:19 36.9 C 76 18 103/69 Pulse Ox O2 Del Method 06/16/22 16:00 95 Room Air 06/16/22 07:00 06/16/22 12:00 95 Room Air 06/16/22 06:19 95 Room Air all noted and reviewed including below
[2022-06-16] MEDS: ESCITALOPRAM OXALATE 20 MG TAB PO SCH (21:04)
[2022-06-17] MEDS: LACTATED RINGER'S 1,000 ML IV SCH ×2 (00:33→18:22)
[2022-06-17] MEDS: HYDROmorphone INJ 0.5 MG/0.5 ML SYR IV PRN ×4 (03:17→22:28)
[2022-06-17] MEDS: metroNIDAZOLE 500 MG/100 ML BAG IV SCH ×3 (04:11→21:24)
[2022-06-17 06:49] LABS: Hematocrit (blood only) 35.1 % (34.1-44.9); Hemoglobin 11.4 g/dl (12.0-16.0); Mean Corpuscular Hemoglobin 26.9 pg (25.0-34.0); Mean Corpuscular Hgb Conc 32.5 g/dL (32.0-36.0); Mean Corpuscular Volume 82.8 fL (80.0-100.0); Mean Platelet Volume 10.2 fL (9.4-12.3); Platelet Count 239 K/uL (130-400); RDW Coefficient of Variation 13.2 % (11.5-14.5); Red Blood Count 4.24 M/uL (3.93-5.22); White Blood Count 11.72 K/ul (4.8-10.8)
[2022-06-17 07:16] LABS: Albumin Globulin Ratio 1.1 (0.9-2); Albumin Level 3.1 gm/dl (3.4-5.0); BUN Creatinine Ratio 8.9 (10-20); Bilirubin,Total 0.3 mg/dl (0.2-1.0); Creatinine Clr Calc Pharmacy 101.9 ml/min; Est GFR (Non-African American) 92.3 ml/min; Globulin 2.8 gm/dl (2.5-4.0); Potassium 3.5 mmol/L (3.5-5.1); Total Protein 5.9 gm/dl (6.0-8.3)
[2022-06-17] MEDS: PANTOprazole 40 MG in SYRINGE 0 ML IV SCH ×2 (08:09→23:25)
[2022-06-17] MEDS: MULTIVITAMIN TAB PO SCH (08:09)
[2022-06-17] MEDS: ADVANCED PROBIOTIC 1250 MG CAPSULE PO SCH (08:09)
[2022-06-17] MEDS: CEFEPIME 2,000 MG in SYRINGE 0 ML IV SCH (08:11)
--- NOTE | 2022-06-17 09:32 | Gastroenterology Progress Note ---
Date of Service June 17, 2022 Assessment & Plan (1) Pancreatitis: Plan: 42 year old female with a history of pancreatitis, sphincter of Oddi dysfunction, s/p sphincterotomy in the past, who presents with abdominal pain, nausea, vomiting, and questionable findings of duodenitis versus pancreatitis on CT imaging NPO LR 150-200mL/hr Antiemetics PRN Analgesia PRN Protonix 40 mg IV BID x 48 hours then PO PPI BID Advance to clear liquids as tolerated Will arrange OP EGD/EUS/ERCP Thank you for allowing us to participate in the care of this patient. Please call with any acute changes, questions or concerns. Please see addendum below with additional recommendation from my supervising physician. Admission and Anticipated Discharge Date Admission Date: June 15, 2022 Supervising Physician Co-Signing Physician Notes I have seen and examined the patient with TJ Oliver. Prior history of sphincterotomy in 2012 for sod. Admitted now with abdominal pain. PE as above. Would treat for acute pancreatitis with conservative measures, could consider possible repeat ERCP in 8-12 weeks for potential extension of the sphincterotomy after review with advanced endoscopy. Agree with further plan of care as above. Subjective Pt was seen and evaluated, chart reviewed Abd pain slightly improved Less nausea. No vomiting today CTAP 2021: . Nonspecific trace free fluid throughout the abdomen. No edema or fat stranding is seen about the pancreatic body and tail. Findings are similar nonspecific but may represent duodenitis or head pancreatitis. 2. No evidence of bowel obstruction, appendicitis, or other acute abnormality. 3. Hepatic steatosis. Review of Systems Review of Systems: All systems reviewed & are unremarkable except as noted in HPI & below Physical Exam Constitutional: WD/WN, vitals as above Respiratory: normal respiratory effort, lungs clear to auscultation Cardiovascular: Rate/Rhythm: regular rate Gastrointestinal (Abdomen): Inspection/Auscultation: abdomen normal to inspection and normal bowel sounds Percussion/Palpation: abdomen soft; abdomen nontender and no guarding Skin: no rashes, warm and dry Results & Data ([facility]) Vital Signs (Past 12 Hours) Vital Signs Temp Pulse Pulse Resp BP BP Pulse Ox 06/17/22 07:37 37.1 C 76 20 110/77 97 06/17/22 04:15 37 C 82 16 119/77 93 06/17/22 01:40 83 06/16/22 22:33 37 C 87 18 115/82 95 O2 Del Method 06/17/22 07:37 Room Air 06/17/22 04:15 Room Air 06/17/22 01:40 06/16/22 22:33 Room Air Laboratory Results 06/17/22 06/17/22 Range/Units 05:54 05:54 WBC 11.72 H (4.8-10.8) K/ul RBC 4.24 (3.93-5.22) M/uL Hgb 11.4 L (12.0-16.0) g/dl Hct 35.1 (34.1-44.9) % MCV 82.8 (80.0-100.0) fL MCH 26.9 (25.0-34.0) pg MCHC 32.5 (32.0-36.0) g/dL RDW Std Deviation 40.0 (36.4-46.3) fL RDW Coeff of Ann [place] 13.2 (11.5-14.5) % Plt Count 239 (130-400) K/uL MPV 10.2 (9.4-12.3) fL Sodium 138 (136-145) mmol/L Potassium 3.5 (3.5-5.1) mmol/L Chloride 105 (98-107) mmol/L Carbon Dioxide 28 (21-32) mmol/L Anion Gap 5 (3-11) BUN 7 (6-23) mg/dl Creatinine 0.79 (0.6-1.2) mg/dl Est Cr Clr Drug Dosing 101.9 ml/min Est GFR ( Amer) 107.0 ml/min Est GFR (Non-Af Amer) 92.3 ml/min BUN/Creatinine Ratio 8.9 L (10-20) Glucose 98 (70-99(Fasting)) mg/dl Calcium 8.0 L (8.5-10.1) mg/dl Total Bilirubin 0.3 (0.2-1.0) mg/dl AST 16 (13-39) U/L ALT 17 (7-52) U/L Alkaline Phosphatase 73 (34-104) U/L Total Protein 5.9 L (6.0-8.3) gm/dl Albumin 3.1 L (3.4-5.0) gm/dl Globulin 2.8 (2.5-4.0) gm/dl Albumin/Globulin Ratio 1.1 (0.9-2) Lipase 19 (11-82) U/L
[2022-06-17] MEDS: HYDROCODONE/ACETAMOPHEN 5/325MG TAB PO PRN ×2 (12:31→18:51)
--- NOTE | 2022-06-17 16:33 | Hospitalist Progress Note ---
Date of Service June 17, 2022 Assessment & Plan (1) Sepsis: (2) Abdominal pain: (3) Sphincter of Oddi dysfunction: (4) History of pancreatitis: (5) IBS (irritable bowel syndrome): (6) Anxiety: Plan Primary service notes with addendum: This is a 42-year-old female with PMH of duodenal papillary stenosis, IBS, gastroparesis and other medical problems listed below who presents with abdominal pain starting at 1 PM this afternoon. 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 Fletcher). Has not been seen by [facility] since 2013 since symptoms resolved at that point. Abdominal pain, nausea and vomiting Possible duodenitis History of sphincter of Oddi dysfunction Possible acute pancreatitis Possible sepsis secondary to above Sudden onset epigastric abdominal pain starting this afternoon with associated nausea and vomiting Afebrile, HR 110s, WBC 23.49K, hgb 16.9 and plt 470 consistent with hemoconcentration 2/2 dehydration. Lactate wnl In ED, given 12mg morphine total during stay - pain now controlled at 11/01. Also received 2 L NSS and zofran x 3 CT abd/pelvis with nonspecific trace free fluid throughout the abdomen. No edema or fat stranding is seen about the pancreatic body and tail. Findings are similar nonspecific but may represent duodenitis or head pancreatitis Blood cultures pending Keeping NPO except ice chips and sips, LR @ 150 ml/hr, empiric Cefepime and Flagyl, antiemetics and analgesics PRN Routine gastroenterology consult 06/16 Patient is hemodynamically stable, afebrile Blood cultures: Pending LFTs okay, lipase normal GI consulted-no urgent EGD recommended for today Continue Protonix IV twice daily Continue cefepime plus Flagyl Clear liquid diet, IV fluids Monitor closely 06/17 Still having some epigastric pain Added [place] as needed p.o. Dilaudid as needed GI consulted-outpatient ERCP recommended For now continue Protonix IV twice daily Continue with ceftriaxone plus Flagyl Clear liquid diet Monitor closely next Anxiety Lexapro, PRN Buspar at home DVT Ppx: SCDs Frequent ambulation Code status: FULL PCP: Rachel Dispo: Plan to discharge home medically stable, cleared by GI plan of care discussed with patient in detail and at length all questions answered She is understanding, agreeable, comfortable with the plan of care Admission and Anticipated Discharge Date Admission Date: June 15, 2022 Subjective Follow-up for duodenitis, possible acute pancreatitis, etc. Was seen resting in bed, comfortable, not in distress Having moderate to significant pain today IV Dilaudid helping but seems to be not adequate today No nausea On clear liquids, tolerating okay so far No fevers or chills no chest pain, dyspnea, palpitations, dizziness Review of Systems Review of Systems: all noted and negative except for above Physical Exam Physical Exam: General- oriented x 3, not in distress, speaks in sentences with no effort or accessory muscle use Eyes- anicteric Neck- no JVD Lungs- clear breath sounds bilaterally, no crackles or wheezing Heart- normal rate, regular rhythm; no murmurs Abdomen- normal bowel sounds, nondistended, soft, minimal epigastric tenderness Extremities- no pretibial edema, no calf tenderness Neuro- alert, oriented x 3; no gross focal neurologic deficits Skin- warm & dry Results & Data Results & Data ([facility]) Vital Signs (Past 12 Hours) Vital Signs Temp Pulse Pulse Resp BP BP Pulse Ox 06/17/22 15:41 75 06/17/22 14:58 37.4 C 75 18 114/80 97 06/17/22 11:38 36.6 C 82 20 118/78 96 06/17/22 10:16 76 06/17/22 07:37 37.1 C 76 20 110/77 97 O2 Del Method 06/17/22 15:41 06/17/22 14:58 Room Air 06/17/22 11:38 Room Air 06/17/22 10:16 06/17/22 07:37 Room Air all noted and reviewed including below
[2022-06-17] MEDS: ESCITALOPRAM OXALATE 20 MG TAB PO SCH (20:43)
[2022-06-17] MEDS: cefTRIAXone SODIUM 2,000 MG in DEXTROSE 5% 50 ML IV SCH (20:44)
[2022-06-17] MEDS: LORazepam 0.5 MG TAB PO PRN (22:28)
[2022-06-17] MEDS ORDERED: XOPENEX/ATROVENT 1.25mg/0.5MG NEB COMBO NEB PRN (22:37)
[2022-06-17] MEDS: LEVALBUTEROL 1.25MG/0.5ML NEB INH PRN (23:18)
[2022-06-17] MEDS: IPRATROPIUM BROMIDE NEB SOLN 0.02% 2.5 ML VIAL INH PRN (23:19)
[2022-06-18] MEDS: HYDROCODONE/ACETAMOPHEN 5/325MG TAB PO PRN ×3 (02:10→12:34)
[2022-06-18] MEDS: metroNIDAZOLE 500 MG/100 ML BAG IV SCH ×3 (05:20→20:43)
[2022-06-18] MEDS: HYDROmorphone INJ 0.5 MG/0.5 ML SYR IV PRN ×6 (05:30→22:59)
[2022-06-18] MEDS: MULTIVITAMIN TAB PO SCH (08:15)
[2022-06-18] MEDS: PANTOprazole 40 MG in SYRINGE 0 ML IV SCH ×2 (08:15→20:44)
[2022-06-18] MEDS: ADVANCED PROBIOTIC 1250 MG CAPSULE PO SCH (08:15)
[2022-06-18] MEDS: IPRATROPIUM BROMIDE NEB SOLN 0.02% 2.5 ML VIAL INH PRN ×2 (08:29→20:00)
[2022-06-18] MEDS: LEVALBUTEROL 1.25MG/0.5ML NEB INH PRN ×2 (08:29→20:00)
[2022-06-18] MEDS ORDERED: FUROSEMIDE INJ 20 MG/2 ML VIAL IV ONE (08:41)
--- NOTE | 2022-06-18 08:55 | XRay Report ---
XR chest 1V portable HISTORY: 42 years-old Female wheeze acute wheezing with shortness of breath COMPARISON: CT abdomen and pelvis 06/15/2022 TECHNIQUE: AP view of the chest FINDINGS: Cardiomediastinal and hilar silhouettes are within normal limits. No pneumothorax, pleural effusion, airspace consolidation or overt pulmonary edema. Bones of the chest appear grossly intact. IMPRESSION: No acute process. ACT 112: Negative or not required by law. The above report was generated using voice recognition software. It may contain grammatical, syntax o r spelling errors. Electronically signed by: Mehrdad Moody M.D. 06/18/2022 8:54 AM
--- NOTE | 2022-06-18 09:48 | Gastroenterology Progress Note ---
Date of Service June 18, 2022 Assessment & Plan (1) Pancreatitis: Plan: 42 year old female with a history of pancreatitis, sphincter of Oddi dysfunction, s/p sphincterotomy in the past, who presents with abdominal pain, nausea, vomiting, and questionable findings of duodenitis versus pancreatitis on CT imaging LR 150-200mL/hr Antiemetics PRN Analgesia PRN Protonix 40 mg IV BID x 48 hours then PO PPI BID Can add Carafate slurry QID Can add Bentyl 10 mg TID Advance to clear liquids as tolerated Will arrange OP EGD/EUS/ERCP Admission and Anticipated Discharge Date Admission Date: June 15, 2022 Supervising Physician Co-Signing Physician Notes Still with mild abd pain, passing gas no bm's PE as documented Agree with further plan of care as documented. Ensure she is on a bowel regimen. Subjective Pt was seen and evaluated, chart reviewed. Tolerating clears No appetite Does still have discomfort. No nausea/vomiting Review of Systems Review of Systems: All systems reviewed & are unremarkable except as noted in HPI & below Physical Exam Constitutional: WD/WN, vitals as above Respiratory: normal respiratory effort, lungs clear to auscultation Gastrointestinal (Abdomen): Percussion/Palpation: + abdomen tender and abdomen soft; no guarding and abdomen not rigid Skin: no rashes, warm and dry Results & Data ([facility]) Vital Signs (Past 12 Hours) Vital Signs Temp Pulse Pulse Resp BP Pulse Ox O2 Del Method 06/18/22 08:25 83 18 95 Room Air 06/18/22 08:01 36.9 C 73 20 130/79 94 Room Air 06/18/22 07:50 72 06/18/22 03:13 36.9 C 88 18 122/79 91 Room Air 06/17/22 22:19 79 06/17/22 22:00 Room Air 06/17/22 23:04 37 C 81 18 125/80 96 Room Air 06/17/22 23:19 76 18 96 Room Air
[2022-06-18] MEDS ORDERED: DICYCLOMINE HCL 10 MG CAP PO PRN (11:07)
[2022-06-18] MEDS ORDERED: HYDROmorphone INJ 0.5 MG/0.5 ML SYR IV STA (12:51)
--- NOTE | 2022-06-18 13:53 | Hospitalist Progress Note ---
Date of Service June 18, 2022 Assessment & Plan (1) Sepsis: (2) Abdominal pain: (3) Sphincter of Oddi dysfunction: (4) History of pancreatitis: (5) IBS (irritable bowel syndrome): (6) Anxiety: Plan Primary service notes with addendum: This is a 42-year-old female with PMH of duodenal papillary stenosis, IBS, gastroparesis and other medical problems listed below who presents with abdominal pain starting at 1 PM this afternoon. 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 Fletcher). Has not been seen by [facility] since 2013 since symptoms resolved at that point. Abdominal pain, nausea and vomiting Possible duodenitis History of sphincter of Oddi dysfunction Possible acute pancreatitis Possible sepsis secondary to above Sudden onset epigastric abdominal pain starting this afternoon with associated nausea and vomiting Afebrile, HR 110s, WBC 23.49K, hgb 16.9 and plt 470 consistent with hemoconcentration 2/2 dehydration. Lactate wnl In ED, given 12mg morphine total during stay - pain now controlled at 3/10. Also received 2 L NSS and zofran x 3 CT abd/pelvis with nonspecific trace free fluid throughout the abdomen. No edema or fat stranding is seen about the pancreatic body and tail. Findings are similar nonspecific but may represent duodenitis or head pancreatitis placed on Protonix IV BID, IV fluids, empiric Ceftri + Flagyl on Dilaudid IV 0.5mg q4h PRN, [place] 5mg q4h PRN on clear liquids now Still having significant epigastric pain increase IV Dilaudid 0.5mg q2h also on [place] PRN q4h GI consulted-outpatient ERCP recommended messaged GI regarding patient's persistent significant abdominal pain will consider inpatient EGD/ERCP Anxiety Lexapro, PRN Buspar at home DVT Ppx: SCDs Frequent ambulation Code status: FULL PCP: Rachel Dispo: Plan to discharge home medically stable, cleared by GI plan of care discussed with patient in detail and at length all questions answered She is understanding, agreeable, comfortable with the plan of care Admission and Anticipated Discharge Date Admission Date: June 15, 2022 Subjective Follow-up for abdominal pain, duodenitis, history of Sphincter of Oddi dysfunction, etc. Seen resting in bed, sitting up Not in distress, reports still having moderate to significant epigastric pain had some nausea this morning on clear liquids no BM no fever/chills no chest pain, dyspnea, palpitations, dizziness no other symptoms Review of Systems Review of Systems: all noted and negative except for above Physical Exam Physical Exam: General- oriented x 3, not in distress, speaks in sentences with no effort or accessory muscle use Eyes- anicteric Neck- no JVD Lungs- clear breath sounds bilaterally, no rales/wheezes Heart- normal rate, regular rhythm; no murmurs Abdomen- normal bowel sounds, nondistended, soft, (+) mild epigastric tenderness Extremities- no pretibial edema, no calf tenderness Neuro- alert, oriented x 3; no gross focal neurologic deficits Skin- warm & dry Results & Data Results & Data ([facility]) Vital Signs (Past 12 Hours) Vital Signs Temp Pulse Pulse Resp BP BP Pulse Ox 06/18/22 11:49 37.3 C 95 H 20 165/94 H 93 06/18/22 08:25 83 18 95 06/18/22 08:01 36.9 C 73 20 130/79 94 06/18/22 07:50 72 06/18/22 03:13 36.9 C 88 18 122/79 91 O2 Del Method 06/18/22 11:49 Room Air 06/18/22 08:25 Room Air 06/18/22 08:01 Room Air 06/18/22 07:50 06/18/22 03:13 Room Air all noted and reviewed including below
[2022-06-18] MEDS: POLYETHYLENE (MIRALAX) 17 GM PACK PO SCH (14:00)
[2022-06-18] MEDS: SUCRALFATE 1 GM/10 ML UDC PO SCH ×3 (14:00→20:47)
--- NOTE | 2022-06-18 15:05 | CT Scan Report ---
CT SCAN OF THE ABDOMEN AND PELVIS WITHOUT IV CONTRAST CLINICAL HISTORY: Generalized abdominal pain. Duodenitis. COMPARISON STUDY: Abdominal CT dated 06/15/2022. TECHNIQUE: CT scan of the abdomen and pelvis is performed from the lung bases to the proximal femora. Images are reviewed in the axial, sagittal, and coronal planes. IV contrast was not administered for this examination as per the referring clinician. Note that the examination was performed in suboptim al fashion without oral and IV contrast. A dose lowering technique was utilized adhering to the [facility] of [place]. CT DOSE: 1067.06 mGycm FINDINGS: Lung bases: The heart is normal in size and without pericardial effusion. A punctate calcified granul dave is seen in the right lower lobe. There are trace pleural effusions with dependent atelectasis. Liver: The unenhanced liver is enlarged, measuring 20.2 cm in length. The liver demonstrates diminish ed attenuation indicating steatosis. There is no intrahepatic biliary ductal dilatation. Gallbladder: Surgically absent and clips in the gallbladder fossa. Spleen: Normal in size and attenuation. Pancreas: Unremarkable. Adrenal glands: Unremarkable. Kidneys: The unenhanced kidneys are normal in size and without hydronephrosis. There are no renal moris culi identified. There is no evidence of contour deforming renal mass lesion. Abdominal vasculature: The abdominal aorta is normal in course and caliber. Bowel: There are scattered colonic diverticula without CT evidence of acute diverticulitis. No bowel obstruction is seen. The appendix is well-visualized and normal. There is only minimal residual mikaela duodenal inflammation. Peritoneum: There is no intraperitoneal free air or abdominal ascites. There is a small fat-containin g umbilical hernia. Lymphadenopathy: None. Pelvic viscera: The bladder is decompressed and not well evaluated. The uterus and adnexa are normal as imaged. Skeletal structures: No lytic or blastic lesions are seen. IMPRESSION: 1. There is only trace residual periduodenal inflammation. Findings of duodenitis seen on 06/15/2022 have almost completely resolved. 2. No intraperitoneal free air is seen. 3. Hepatomegaly and hepatic steatosis. 4. Trace pleural effusions. 5. A small volume of ascites has resolved. ACT 112: Negative or not required by law. Electronically signed by: Carlitos Kohler M.D. 06/18/2022 3:03 PM
[2022-06-18] MEDS: ONDANSETRON INJ 2 MG/ML 2 ML VIAL IV PRN (18:34)
[2022-06-18] MEDS: ESCITALOPRAM OXALATE 20 MG TAB PO SCH (20:48)
[2022-06-18] MEDS: cefTRIAXone SODIUM 2,000 MG in DEXTROSE 5% 50 ML IV SCH (21:52)
[2022-06-18] MEDS: LORazepam 0.5 MG TAB PO PRN (22:59)
[2022-06-19] MEDS: PROMETHAZINE HCL 6.25 MG in SODIUM CHLORIDE 0.9% 50 ML IV PRN (00:33)
[2022-06-19] MEDS: HYDROmorphone INJ 0.5 MG/0.5 ML SYR IV PRN ×4 (02:51→12:59)
[2022-06-19] MEDS: metroNIDAZOLE 500 MG/100 ML BAG IV SCH ×3 (04:26→21:00)
[2022-06-19] MEDS: POLYETHYLENE (MIRALAX) 17 GM PACK PO SCH (08:24)
[2022-06-19] MEDS: PANTOprazole 40 MG in SYRINGE 0 ML IV SCH (08:24)
[2022-06-19] MEDS: HYDROCODONE/ACETAMOPHEN 5/325MG TAB PO PRN ×3 (08:24→21:06)
[2022-06-19] MEDS: MULTIVITAMIN TAB PO SCH (08:24)
[2022-06-19] MEDS: SUCRALFATE 1 GM/10 ML UDC PO SCH ×4 (08:24→21:03)
[2022-06-19] MEDS: ADVANCED PROBIOTIC 1250 MG CAPSULE PO SCH (08:24)
--- NOTE | 2022-06-19 09:21 | Gastroenterology Progress Note ---
Date of Service June 19, 2022 Assessment & Plan (1) Pancreatitis: Plan: 42 year old female with a history of pancreatitis, sphincter of Oddi dysfunction, s/p sphincterotomy in the past, who presents with abdominal pain, nausea, vomiting, and questionable findings of duodenitis versus pancreatitis on CT imaging Discussed with biliary attending who recommend to keep EGD/EUS +/- ERCP as OP but to conduct MRI/MRCP while admitted NPO MRI/MRCP LR 150-200mL/hr Antiemetics PRN Analgesia PRN Protonix 40 mg IV BID x 48 hours then PO PPI BID Can add Carafate slurry QID Can add Bentyl 10 mg TID Advance to clear liquids as tolerated Will arrange OP EGD/EUS/ERCP Thank you for allowing us to participate in the care of this patient. Please call with any acute changes, questions or concerns. Please see addendum below with additional recommendation from my supervising physician. Admission and Anticipated Discharge Date Admission Date: June 15, 2022 Supervising Physician Co-Signing Physician Notes PE as noted MRCP Agree with futher plan of care as documented Subjective Persistent pain, nausea Inability to advance diet Discussed with biliary attending Recommend MRCP Review of Systems Review of Systems: All systems reviewed & are unremarkable except as noted in HPI & below Physical Exam Constitutional: WD/WN, vitals as above Respiratory: normal respiratory effort Cardiovascular: Rate/Rhythm: regular rate Gastrointestinal (Abdomen): normal bowel sounds, soft, nontender, no hepatosplenomegaly Skin: no rashes, warm and dry Results & Data ([facility]) Vital Signs (Past 12 Hours) Vital Signs Temp Pulse Pulse Resp BP Pulse Ox O2 Del Method 06/19/22 06:54 37 C 71 18 121/83 93 Room Air 06/19/22 03:30 36.7 C 83 18 116/72 95 Room Air 06/18/22 22:15 83 06/18/22 23:30 37.1 C 80 18 122/82 94 Room Air Laboratory Results 06/19/22 Range/Units 08:57 Sodium Pending Potassium Pending Chloride Pending Carbon Dioxide Pending Anion Gap Pending BUN Pending Creatinine Pending Est Cr Clr Drug Dosing Pending Est GFR ( Amer) Pending Est GFR (Non-Af Amer) Pending BUN/Creatinine Ratio Pending Glucose Pending Calcium Pending Total Bilirubin Pending AST Pending ALT Pending Alkaline Phosphatase Pending Total Protein Pending Albumin Pending Globulin Pending Albumin/Globulin Ratio Pending Lipase Pending
[2022-06-19 10:00] LABS: Albumin Level 3.4 gm/dl (3.4-5.0); BUN Creatinine Ratio 8.1 (10-20); Bilirubin,Total 0.4 mg/dl (0.2-1.0); Calcium 8.6 mg/dl (8.5-10.1); Est GFR (African American) 115.8 ml/min; Est GFR (Non-African American) 99.9 ml/min; Globulin 3.5 gm/dl (2.5-4.0); Potassium 3.9 mmol/L (3.5-5.1); Total Protein 6.9 gm/dl (6.0-8.3)
--- NOTE | 2022-06-19 12:42 | Hospitalist Progress Note ---
Date of Service June 19, 2022 Assessment & Plan (1) Abdominal pain: Plan: - Sudden onset epigastric abdominal pain with associated nausea and vomiting - CT abd/pelvis with nonspecific trace free fluid throughout the abdomen. No edema or fat stranding is seen about the pancreatic body and tail. 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 with resolution of symptoms until this presentation - MRCP as above - GI following - planning for OP EGD (3) History of pancreatitis: Plan: - not since sphincterectomy 2012 - s/p aggressive IVF - repeat CT-AP 06/19/2022 without evidence of pancreatitis - noted (4) IBS (irritable bowel syndrome): Plan: - noted (5) Anxiety: Plan: - continue citalopram Plan DVT Ppx: SCDs, Frequent ambulation Code status: FULL PCP: Rachel Dispo: Plan to discharge home medically stable, tolerating PO Joshua Newton MD [facility] Medicine Admission and Anticipated Discharge Date Admission Date: June 15, 2022 Subjective Patient with history of duodenal papillary stenosis, IBD, sphincter of Oddi dysfunction s/p sphincterectomy presented with abdominal pain, nausea and vomiting. CT findings concern for pancreatitis vs duodenitis. Started on IVF and abx for duodenitis. Abdominal pain and n/v persisted. Patient reports no real change in abdominal pain, mild nausea but no vomiting. Abdominal pain rated as 5/10 this morning. Otherwise denied other complaints of chest pain, shortness of breath, diarrhea, dysuria, cough. Review of Systems Review of Systems: all noted and negative except for above Physical Exam Physical Exam: General- oriented x 3, not in distress, speaks in sentences with no effort or accessory muscle use Eyes- anicteric Neck- no JVD Lungs- clear breath sounds bilaterally, no rales/wheezes Heart- normal rate, regular rhythm; no murmurs Abdomen- normal bowel sounds, nondistended, soft, (+) mild epigastric tenderness Extremities- no pretibial edema, no calf tenderness Neuro- alert, oriented x 3; no gross focal neurologic deficits Skin- warm & dry Results & Data Results & Data ([facility]) Vital Signs (Past 12 Hours) Vital Signs Temp Pulse Pulse Resp BP Pulse Ox O2 Del Method 06/19/22 11:39 36.7 C 74 18 131/87 95 Room Air 06/19/22 10:43 71 06/19/22 06:54 37 C 71 18 121/83 93 Room Air 06/19/22 03:30 36.7 C 83 18 116/72 95 Room Air Diagnostic Findings Laboratory Results WBC 11.72 K/ul (4.8-10.8) H 06/17/22 05:54 RBC 4.24 M/uL (3.93-5.22) 06/17/22 05:54 Hgb 11.4 g/dl (12.0-16.0) L 06/17/22 05:54 Hct 35.1 % (34.1-44.9) 06/17/22 05:54 MCV 82.8 fL (80.0-100.0) 06/17/22 05:54 MCH 26.9 pg (25.0-34.0) 06/17/22 05:54 MCHC 32.5 g/dL (32.0-36.0) 06/17/22 05:54 RDW Std Deviation 40.0 fL (36.4-46.3) 06/17/22 05:54 RDW Coeff of [place] 13.2 % (11.5-14.5) 06/17/22 05:54 Plt Count 239 K/uL (130-400) 06/17/22 05:54 MPV 10.2 fL (9.4-12.3) 06/17/22 05:54 Immature Gran % (Auto) 2.4 % 06/15/22 14:30 Neut % (Auto) 79.1 % 06/15/22 14:30 Lymph % (Auto) 14.7 % 06/15/22 14:30 [place] % (Auto) 3.2 % 06/15/22 14:30 Eos % (Auto) 0.3 % 06/15/22 14:30 Baso % (Auto) 0.3 % 06/15/22 14:30 Neut # (Auto) 18.59 K/uL (1.4-6.5) H 06/15/22 14:30 Lymph # (Auto) 3.45 K/uL (1.2-3.4) H 06/15/22 14:30 [place] # (Auto) 0.74 K/uL (0.24-0.82) 06/15/22 14:30 Eos # (Auto) 0.06 K/uL (0-0.50) 06/15/22 14:30 Baso # (Auto) 0.08 K/uL (0-0.2) 06/15/22 14:30 Immature Gran # (Auto) 0.57 K/uL (0.00-0.02) H 06/15/22 14:30 Sodium 140 mmol/L (136-145) 06/19/22 08:57 Potassium 3.9 mmol/L (3.5-5.1) 06/19/22 08:57 Chloride 103 mmol/L (98-107) 06/19/22 08:57 Carbon Dioxide 31 mmol/L (21-32) 06/19/22 08:57 Anion Gap 6 (3-11) 06/19/22 08:57 BUN 6 mg/dl (6-23) 06/19/22 08:57 Creatinine 0.74 mg/dl (0.6-1.2) 06/19/22 08:57 Est Cr Clr Drug Dosing 109.0 ml/min 06/19/22 08:57 Est GFR ( Amer) 115.8 ml/min 06/19/22 08:57 Est GFR (Non-Af Amer) 99.9 ml/min 06/19/22 08:57 BUN/Creatinine Ratio 8.1 (10-20) L 06/19/22 08:57 Glucose 99 mg/dl (70-99(Fasting)) 06/19/22 08:57 Lactate 0.9 mmol/L (0.4-2.0) 06/15/22 18:34 Calcium 8.6 mg/dl (8.5-10.1) 06/19/22 08:57 Total Bilirubin 0.4 mg/dl (0.2-1.0) 06/19/22 08:57 AST 33 U/L (13-39) 06/19/22 08:57 ALT 30 U/L (7-52) 06/19/22 08:57 Alkaline Phosphatase 74 U/L (34-104) 06/19/22 08:57 Total Protein 6.9 gm/dl (6.0-8.3) 06/19/22 08:57 Albumin 3.4 gm/dl (3.4-5.0) 06/19/22 08:57 Globulin 3.5 gm/dl (2.5-4.0) 06/19/22 08:57 Albumin/Globulin Ratio 1.0 (0.9-2) 06/19/22 08:57 Lipase 19 U/L (11-82) 06/19/22 08:57 Urine Color Dark Yellow 06/15/22 16:25 Urine Appearance Cloudy (Clear) A 06/15/22 16:25 Urine pH 5.0 (4.5-7.5) 06/15/22 16:25 Ur Specific [place] 1.027 (1.000-1.030) 06/15/22 16:25 Urine Protein 1+ (Negative) H 06/15/22 16:25 Urine Glucose (UA) Negative (Negative) 06/15/22 16:25 Urine Ketones Trace (Negative) H 06/15/22 16:25 Urine Blood Negative (Negative) 06/15/22 16:25 Urine Nitrite Negative (Negative) 06/15/22 16:25 Urine Bilirubin 1+ (Negative) H 06/15/22 16:25 Urine Urobilinogen Negative (Negative) 06/15/22 16:25 Ur Leukocyte Esterase Trace (Negative) H 06/15/22 16:25 Urine WBC (Auto) 1-5 /hpf (0-5) 06/15/22 16:25 Urine RBC (Auto) 5-10 /hpf (0-4) H 06/15/22 16:25 U Hyaline Cast (Auto) 10-30 /lpf (0-5) H 06/15/22 16:25 U Epithel Cells (Auto) >30 /lpf (0-5) H 06/15/22 16:25 Urine Bacteria (Auto) Negative (Negative) 06/15/22 16:25 POC Ur Test NEG (NEG) 06/15/22 16:25 SARS-CoV-2, RNA, NAAT NEGATIVE (NEGATIVE) 06/15/22 18:15 Impressions Chest X-Ray 06/17/22 22:38 XR chest 1V portable HISTORY: 42 years-old Female wheeze acute wheezing with shortness of breath COMPARISON: CT abdomen and pelvis 06/15/2022 TECHNIQUE: AP view of the chest FINDINGS: Cardiomediastinal and hilar silhouettes are within normal limits. No pneumothorax, pleural effusion, airspace consolidation or overt pulmonary edema. Bones of the chest appear grossly intact. IMPRESSION: No acute process. ACT 112: Negative or not required by law. The above report was generated using voice recognition software. It may contain grammatical, syntax or spelling errors. Electronically signed by: Mehrdad Moody M.D. 06/18/2022 8:54 AM Abdomen/Pelvis CT 06/18/22 13:46 CT SCAN OF THE ABDOMEN AND PELVIS WITHOUT IV CONTRAST CLINICAL HISTORY: Generalized abdominal pain. Duodenitis. COMPARISON STUDY: Abdominal CT dated 06/15/2022. TECHNIQUE: CT scan of the abdomen and pelvis is performed from the lung bases to the proximal femora. Images are reviewed in the axial, sagittal, and coronal planes. IV contrast was not administered for this examination as per the referring clinician. Note that the examination was performed in suboptimal fashion without oral and IV contrast. A dose lowering technique was utilized adhering to the principles of ALARA. CT DOSE: 1067.06 mGycm FINDINGS: Lung bases: The heart is normal in size and without pericardial effusion. A punctate calcified granuloma is seen in the right lower lobe. There are trace pleural effusions with dependent atelectasis. Liver: The unenhanced liver is enlarged, measuring 20.2 cm in length. The liver demonstrates diminished attenuation indicating steatosis. There is no intrahepatic biliary ductal dilatation. Gallbladder: Surgically absent and clips in the gallbladder fossa. Spleen: Normal in size and attenuation. Pancreas: Unremarkable. Adrenal glands: Unremarkable. Kidneys: The unenhanced kidneys are normal in size and without hydronephrosis. There are no renal calculi identified. There is no evidence of contour deforming renal mass lesion. Abdominal vasculature: The abdominal aorta is normal in course and caliber. Bowel: There are scattered colonic diverticula without CT evidence of acute diverticulitis. No bowel obstruction is seen. The appendix is well-visualized and normal. There is only minimal residual periduodenal inflammation. Peritoneum: There is no intraperitoneal free air or abdominal ascites. There is a small fat-containing umbilical hernia. Lymphadenopathy: None. Pelvic viscera: The bladder is decompressed and not well evaluated. The uterus and adnexa are normal as imaged. Skeletal structures: No lytic or blastic lesions are seen. IMPRESSION: 1. There is only trace residual periduodenal inflammation. Findings of duodeniti s seen on 06/15/2022 have almost completely resolved. 2. No intraperitoneal free air is seen. 3. Hepatomegaly and hepatic steatosis. 4. Trace pleural effusions. 5. A small volume of ascites has resolved. ACT 112: Negative or not required by law. Electronically signed by: Carlitos Kohler M.D. 06/18/2022 3:03 PM Medications Administered Current Inpatient Medications Acetaminophen (Acetaminophen 325 Mg Tab) 650 mg PO Q4H PRN PRN Reason: Mild pain or Fever Stop: 07/15/22 21:50 Hydrocodone Bitart/Acetaminophen (Hydrocodone/Acetamophen 5/325mg Tab) 1 tab PO Q4H PRN PRN Reason: Moderate Pain Stop: 07/01/22 09:29 Last Admin: 06/19/22 08:24 Dose: 1 tab Dicyclomine HCl (Dicyclomine Hcl 10 Mg Cap) 10 mg PO TID PRN PRN Reason: abdominal pain Stop: 07/18/22 13:59 Escitalopram Oxalate (Escitalopram Oxalate 20 Mg Tab) 20 mg PO QPM [facility] Stop: 07/15/22 20:59 Last Admin: 06/18/22 20:48 Dose: 20 mg Hydromorphone HCl (Hydromorphone Inj 0.5 Mg/0.5 Ml Syr) 0.5 mg IV Q2H PRN PRN Reason: Severe Pain Stop: 06/29/22 21:50 Last Admin: 06/19/22 09:55 Dose: 0.5 mg Lactated Ringer's (Lr) 1,000 mls @ 60 mls/hr IV .[id number] [place] Stop: 07/15/22 18:14 Last Infusion: 06/19/22 06:57 Dose: Infused Metronidazole (Flagyl) 500 mg in 100 mls @ 100 mls/hr IV Q8H [place] Stop: 06/26/22 03:59 Last Infusion: 06/19/22 06:13 Dose: Infused Promethazine HCl 6.25 mg/ (Sodium Chloride) 50.25 mls @ 201 mls/hr IV Q6H PRN PRN Reason: Nausea And Vomiting Stop: 07/15/22 19:25 Last Infusion: 06/19/22 00:52 Dose: Infused Ceftriaxone Sodium 2,000 mg/ (Dextrose) 70 mls @ 100 mls/hr IV Q24H [place]; Protocol Stop: 06/27/22 20:59 Last Infusion: 06/18/22 22:38 Dose: Infused Ipratropium [place] (Ipratropium [place] Neb Soln 0.02% 2.5 Ml Vial) 0.5 mg INH Q4H PRN PRN Reason: Shortness Of Breath Or Wheezing Stop: 07/17/22 22:44 Last Admin: 06/18/22 20:00 Dose: 0.5 mg Lactobacillus Acidophilus (Advanced Probiotic 1250 Mg Capsule) 2 cap PO DAILY [place] Stop: 07/16/22 08:59 Last Admin: 06/19/22 08:24 Dose: 2 cap Levalbuterol HCl (Levalbuterol 1.25mg/0.5ml Neb) 1.25 mg INH Q4H PRN PRN Reason: Shortness Of Breath Or Wheezing Stop: 07/17/22 22:44 Last Admin: 06/18/22 20:00 Dose: 1.25 mg Lorazepam (Lorazepam 0.5 Mg Tab) 0.5 mg PO HS PRN PRN Reason: insomnia Stop: 07/15/22 23:42 Last Admin: 06/18/22 22:59 Dose: 0.5 mg Multivitamins (Multivitamin Tab) 1 tab PO QAM [place] Stop: 07/17/22 08:59 Last Admin: 06/19/22 08:24 Dose: 1 tab Ondansetron HCl (Ondansetron Inj 2 Mg/Ml 2 Ml Vial) 4 mg IV Q6H PRN PRN Reason: Nausea Stop: 07/15/22 21:50 Last Admin: 06/18/22 18:34 Dose: 4 mg Pantoprazole Sodium (Pantoprazole 40 Mg Tab) 40 mg PO BID [place] Stop: 11/25/22 20:59 Polyethylene Glycol (Polyethylene (Miralax) 17 Gm Pack) 17 gm PO DAILY PRN PRN Reason: Constipation Stop: 07/15/22 21:50 Polyethylene Glycol (Polyethylene (Miralax) 17 Gm Pack) 17 gm PO DAILY [facility] Stop: 07/18/22 11:14 Last Admin: 06/19/22 08:24 Dose: 17 gm Sucralfate (Sucralfate 1 Gm/10 Ml Udc) 1 gm PO QID [facility] Stop: 07/18/22 12:59 Last Admin: 06/19/22 08:24 Dose: 1 gm
[2022-06-19] MEDS ORDERED: HYDROmorphone INJ 0.5 MG/0.5 ML SYR IV PRN ×2 (12:57→16:27)
[2022-06-19] MEDS ORDERED: INFLUENZA VIRUS QUAD VACCINE 0.5 ML SYR IM ONE (13:04)
--- NOTE | 2022-06-19 14:40 | Magnetic Resonance Report ---
MR MRCP HISTORY: 42 years-old Female abdominal pain . Generalized abdominal pain with nausea and vomiting COMPARISON: CT abdomen and pelvis 06/18/2022, MRCP 05/27/2013 TECHNIQUE: MRCP without the use of IV contrast was obtained according to institutional protocol. FINDINGS: Mildly motion degraded exam. Trace pericardial and pleural effusions. The spleen is mildly enlarged a t 13.7 cm. Unremarkable adrenal glands, and pancreas. No pancreatic ductal dilation, interstitial or peripancreatic inflammation. No peripancreatic fluid collections or lesions. Cholecystectomy. Mild he patomegaly. Dilated common bile duct measures up to 10 mm. No biliary strictures or filling defects t o suggest choledocholithiasis. No definite residual periduodenal inflammation identified or significa nt duodenal wall thickening. Unremarkable soft tissues and imaged osseous structures. IMPRESSION: 1. Cholecystectomy. Dilation of the common bile duct is redemonstrated which is presumably on a posto perative basis. 2. No choledocholithiasis identified. 3. The previously described periduodenal inflammatory changes appear to have resolved. Findings are c ompatible with a resolving duodenitis. ACT 112: Negative or not required by law. The above report was generated using voice recognition software. It may contain grammatical, syntax o r spelling errors. Electronically signed by: Mehrdad Moody M.D. 06/19/2022 2:39 PM
[2022-06-19] MEDS ORDERED: KETOROLAC TROMETHAMINE 15 MG/ML VIAL IV PRN (16:28)
[2022-06-19] MEDS ORDERED: bisacodyL 5 MG TABEC PO ONE (17:41)
[2022-06-19] MEDS: METOCLOPRAMIDE HCL INJ 5 MG/ML 2 ML VIAL IV SCH (18:17)
[2022-06-19] MEDS: PANTOprazole 40 MG TAB PO SCH (21:03)
[2022-06-19] MEDS: ESCITALOPRAM OXALATE 20 MG TAB PO SCH (21:03)
[2022-06-19] MEDS: cefTRIAXone SODIUM 2,000 MG in DEXTROSE 5% 50 ML IV SCH (22:04)
[2022-06-19] MEDS: LORazepam 0.5 MG TAB PO PRN (22:38)
[2022-06-20] MEDS: METOCLOPRAMIDE HCL INJ 5 MG/ML 2 ML VIAL IV SCH ×3 (00:35→11:59)
[2022-06-20] MEDS: metroNIDAZOLE 500 MG/100 ML BAG IV SCH (04:19)
[2022-06-20 06:49] LABS: Basophils # (auto) 0.05 K/uL (0-0.2); Basophils % (auto) 0.4 %; Eosinophils # (auto) 0.34 K/uL (0-0.50); Eosinophils % (auto) 2.9 %; Hematocrit (blood only) 37.7 % (34.1-44.9); Hemoglobin 12.4 g/dl (12.0-16.0); Immature Granulocytes % (auto) 0.9 %; Lymphocytes # (auto) 2.34 K/uL (1.2-3.4); Mean Corpuscular Hemoglobin 26.9 pg (25.0-34.0); Mean Corpuscular Hgb Conc 32.9 g/dL (32.0-36.0); Mean Corpuscular Volume 81.8 fL (80.0-100.0); Mean Platelet Volume 10.2 fL (9.4-12.3); Monocytes # (auto) 0.52 K/uL (0.24-0.82); Monocytes % (auto) 4.4 %; Neutrophils # (auto) 8.35 K/uL (1.4-6.5); Neutrophils % (auto) 71.4 %; Platelet Count 296 K/uL (130-400); RDW Coefficient of Variation 12.8 % (11.5-14.5); RDW Standard Deviation 37.9 fL (36.4-46.3); Red Blood Count 4.61 M/uL (3.93-5.22)
[2022-06-20 07:33] LABS: Albumin Globulin Ratio 1.1 (0.9-2); Albumin Level 3.4 gm/dl (3.4-5.0); BUN Creatinine Ratio 13.8 (10-20); Bilirubin,Total 0.3 mg/dl (0.2-1.0); Calcium 8.1 mg/dl (8.5-10.1); Creatinine Clr Calc Pharmacy 124.3 ml/min; Est GFR (African American) 126.9 ml/min; Est GFR (Non-African American) 109.5 ml/min; Magnesium 1.9 mg/dl (1.7-2.4); Potassium 3.3 mmol/L (3.5-5.1); Total Protein 6.4 gm/dl (6.0-8.3)
[2022-06-20] MEDS ORDERED: POTASSIUM PHOS 3 MMOL/1 ML INFUSION IV STA (07:55)
[2022-06-20] MEDS: POLYETHYLENE (MIRALAX) 17 GM PACK PO SCH (08:21)
[2022-06-20] MEDS: HYDROCODONE/ACETAMOPHEN 5/325MG TAB PO PRN (08:21)
[2022-06-20] MEDS: ADVANCED PROBIOTIC 1250 MG CAPSULE PO SCH (08:22)
[2022-06-20] MEDS: PANTOprazole 40 MG TAB PO SCH (08:22)
[2022-06-20] MEDS: SUCRALFATE 1 GM/10 ML UDC PO SCH ×2 (08:22→11:59)
[2022-06-20] MEDS: MULTIVITAMIN TAB PO SCH (08:22)
[2022-06-20] MEDS ORDERED: POTASSIUM PHOSPHATE 30 MMOL in SODIUM CHLORIDE 0.9% 500 ML IV ONE (08:30)
[2022-06-20] MEDS ORDERED: bisacodyL 5 MG TABEC PO ONE (09:57)
--- NOTE | 2022-06-20 11:07 | Hospitalist Progress Note ---
Date of Service June 20, 2022 Assessment & Plan (1) Abdominal pain: Plan: - Sudden onset epigastric abdominal pain with associated nausea and vomiting - CT abd/pelvis with nonspecific trace free fluid throughout the abdomen. No edema or fat stranding is seen about the pancreatic body and tail. Findings are similar nonspecific but may represent duodenitis or head pancreatitis - treated for both pancreatitis and duodenitis with IVF and abx - ceftriaxone and flagyl for 7-10 days - will make last day of abx 06/21/[address] 06/18/2022 with duodenitis almost completely resolved - s/p PPI IV BID --> now PO BID, will discharge on 40mg daily - pain control - advance diet as tolerated - now tolerating regular diet - GI following - MRCP negative - likely for outpatient EGD/ERCP pending results of MRCP - LFTs and lipase wnl - likely with underlying dysmotility like gastroparesis - responded well to Reglan and now abdominal pain, n/v resolved, tolerating regular diet (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 with resolution of symptoms until this presentation - MRCP negative - GI following - planning for OP EGD (3) History of pancreatitis: Plan: - not since sphincterectomy 2012 - s/p aggressive IVF - repeat CT-AP 06/19/2022 without evidence of pancreatitis - noted (4) IBS (irritable bowel syndrome): Plan: - noted (5) Anxiety: Plan: - continue citalopram Plan DVT Ppx: SCDs, Frequent ambulation Code status: FULL PCP: Rachel Dispo: Plan to discharge home likely today 06/20/2022 Joshua Newton MD Hospital Medicine Admission and Anticipated Discharge Date Admission Date: June 15, 2022 Subjective Patient with history of duodenal papillary stenosis, IBD, sphincter of Oddi dysfunction s/p sphincterectomy presented with abdominal pain, nausea and vomit ing. CT findings concern for pancreatitis vs duodenitis. Started on IVF and abx for duodenitis. Abdominal pain and n/v persisted. Patient reports much improvement in her symptoms overnight and tolerated a low fat, low fiber diet well. Otherwise denied other complaints of chest pain, shortness of breath, diarrhea, dysuria, cough. Review of Systems Review of Systems: all noted and negative except for above Physical Exam Physical Exam: General- oriented x 3, not in distress, speaks in sentences with no effort or accessory muscle use Eyes- anicteric Neck- no JVD Lungs- clear breath sounds bilaterally, no rales/wheezes Heart- normal rate, regular rhythm; no murmurs Abdomen- normal bowel sounds, nondistended, soft, no epigastric tenderness Extremities- no pretibial edema, no calf tenderness Neuro- alert, oriented x 3; no gross focal neurologic deficits Skin- warm & dry Results & Data Results & Data ([facility]) Vital Signs (Past 12 Hours) Vital Signs Temp Pulse Resp BP Pulse Ox O2 Del Method 06/20/22 08:04 37.1 C 68 21 115/79 95 Room Air 06/20/22 04:00 37 C 81 16 99/63 L 96 Room Air Diagnostic Findings Laboratory Results WBC 11.70 K/ul (4.8-10.8) H 06/20/22 06:07 RBC 4.61 M/uL (3.93-5.22) 06/20/22 06:07 Hgb 12.4 g/dl (12.0-16.0) 06/20/22 06:07 Hct 37.7 % (34.1-44.9) 06/20/22 06:07 MCV 81.8 fL (80.0-100.0) 06/20/22 06:07 MCH 26.9 pg (25.0-34.0) 06/20/22 06:07 MCHC 32.9 g/dL (32.0-36.0) 06/20/22 06:07 RDW Std Deviation 37.9 fL (36.4-46.3) 06/20/22 06:07 RDW Coeff of [place] 12.8 % (11.5-14.5) 06/20/22 06:07 Plt Count 296 K/uL (130-400) 06/20/22 06:07 MPV 10.2 fL (9.4-12.3) 06/20/22 06:07 Immature Gran % (Auto) 0.9 % 06/20/22 06:07 Neut % (Auto) 71.4 % 06/20/22 06:07 Lymph % (Auto) 20.0 % 06/20/22 06:07 Moody % (Auto) 4.4 % 06/20/22 06:07 Eos % (Auto) 2.9 % 06/20/22 06:07 Baso % (Auto) 0.4 % 06/20/22 06:07 Neut # (Auto) 8.35 K/uL (1.4-6.5) H 06/20/22 06:07 Lymph # (Auto) 2.34 K/uL (1.2-3.4) 06/20/22 06:07 Moody # (Auto) 0.52 K/uL (0.24-0.82) 06/20/22 06:07 Eos # (Auto) 0.34 K/uL (0-0.50) 06/20/22 06:07 Baso # (Auto) 0.05 K/uL (0-0.2) 06/20/22 06:07 Immature Gran # (Auto) 0.10 K/uL (0.00-0.02) H 06/20/22 06:07 Sodium 137 mmol/L (136-145) 06/20/22 06:07 Potassium 3.3 mmol/L (3.5-5.1) L 06/20/22 06:07 Chloride 104 mmol/L (98-107) 06/20/22 06:07 Carbon Dioxide 28 mmol/L (21-32) 06/20/22 06:07 Anion Gap 5 (3-11) 06/20/22 06:07 BUN 9 mg/dl (6-23) 06/20/22 06:07 Creatinine 0.65 mg/dl (0.6-1.2) 06/20/22 06:07 Est Cr Clr Drug Dosing 124.3 ml/min 06/20/22 06:07 Est GFR ( Amer) 126.9 ml/min 06/20/22 06:07 Est GFR (Non-Af Amer) 109.5 ml/min 06/20/22 06:07 BUN/Creatinine Ratio 13.8 (10-20) 06/20/22 06:07 Glucose 106 mg/dl (70-99(Fasting)) H 06/20/22 06:07 Lactate 0.9 mmol/L (0.4-2.0) 06/15/22 18:34 Calcium 8.1 mg/dl (8.5-10.1) L 06/20/22 06:07 Phosphorus 2.0 mg/dl (2.5-4.9) L 06/20/22 06:07 Magnesium 1.9 mg/dl (1.7-2.4) 06/20/22 06:07 Total Bilirubin 0.3 mg/dl (0.2-1.0) 06/20/22 06:07 AST 28 U/L (13-39) 06/20/22 06:07 ALT 29 U/L (7-52) 06/20/22 06:07 Alkaline Phosphatase 68 U/L (34-104) 06/20/22 06:07 Total Protein 6.4 gm/dl (6.0-8.3) 06/20/22 06:07 Albumin 3.4 gm/dl (3.4-5.0) 06/20/22 06:07 Globulin 3.0 gm/dl (2.5-4.0) 06/20/22 06:07 Albumin/Globulin Ratio 1.1 (0.9-2) 06/20/22 06:07 Lipase 19 U/L (11-82) 06/19/22 08:57 Urine Color Dark Yellow 06/15/22 16:25 Urine Appearance Cloudy (Clear) A 06/15/22 16:25 Urine pH 5.0 (4.5-7.5) 06/15/22 16:25 Ur Specific [place] 1.027 (1.000-1.030) 06/15/22 16:25 Urine Protein 1+ (Negative) H 06/15/22 16:25 Urine Glucose (UA) Negative (Negative) 06/15/22 16:25 Urine Ketones Trace (Negative) H 06/15/22 16:25 Urine Blood Negative (Negative) 06/15/22 16:25 Urine Nitrite Negative (Negative) 06/15/22 16:25 Urine Bilirubin 1+ (Negative) H 06/15/22 16:25 Urine Urobilinogen Negative (Negative) 06/15/22 16:25 Ur Leukocyte Esterase Trace (Negative) H 06/15/22 16:25 Urine WBC (Auto) 1-5 /hpf (0-5) 06/15/22 16:25 Urine RBC (Auto) 5-10 /hpf (0-4) H 06/15/22 16:25 U Hyaline Cast (Auto) 10-30 /lpf (0-5) H 06/15/22 16:25 U Epithel Cells (Auto) >30 /lpf (0-5) H 06/15/22 16:25 Urine Bacteria (Auto) Negative (Negative) 06/15/22 16:25 POC Ur Test NEG (NEG) 06/15/22 16:25 SARS-CoV-2, RNA, NAAT NEGATIVE (NEGATIVE) 06/15/22 18:15 Impressions Chest X-Ray 06/17/22 22:38 XR chest 1V portable HISTORY: 42 years-old Female wheeze acute wheezing with shortness of breath COMPARISON: CT abdomen and pelvis 06/15/2022 TECHNIQUE: AP view of the chest FINDINGS: Cardiomediastinal and hilar silhouettes are within normal limits. No pneumothorax, pleural effusion, airspace consolidation or overt pulmonary edema. Bones of the chest appear grossly intact. IMPRESSION: No acute process. ACT 112: Negative or not required by law. The above report was generated using voice recognition software. It may contain grammatical, syntax or spelling errors. Electronically signed by: Mehrdad Moody M.D. 06/18/2022 8:54 AM Abdomen/Pelvis CT 06/18/22 13:46 CT SCAN OF THE ABDOMEN AND PELVIS WITHOUT IV CONTRAST CLINICAL HISTORY: Generalized abdominal pain. Duodenitis. COMPARISON STUDY: Abdominal CT dated 06/15/2022. TECHNIQUE: CT scan of the abdomen and pelvis is performed from the lung bases to the proximal femora. Images are reviewed in the axial, sagittal, and coronal planes. IV contrast was not administered for this examination as per the referring clinician. Note that the examination was performed in suboptimal fashion without oral and IV contrast. A dose lowering technique was utilized adhering to the principles of ALARA. CT DOSE: 1067.06 mGycm FINDINGS: Lung bases: The heart is normal in size and without pericardial effusion. A punctate calcified granuloma is seen in the right lower lobe. There are trace pleural effusions with dependent atelectasis. Liver: The unenhanced liver is enlarged, measuring 20.2 cm in length. The liver demonstrates diminished attenuation indicating steatosis. There is no intrahepatic biliary ductal dilatation. Gallbladder: Surgically absent and clips in the gallbladder fossa. Spleen: Normal in size and attenuation. Pancreas: Unremarkable. Adrenal glands: Unremarkable. Kidneys: The unenhanced kidneys are normal in size and without hydronephrosis. There are no renal calculi identified. There is no evidence of contour deforming renal mass lesion. Abdominal vasculature: The abdominal aorta is normal in course and caliber. Bowel: There are scattered colonic diverticula without CT evidence of acute diverticulitis. No bowel obstruction is seen. The appendix is well-visualized and normal. There is only minimal residual periduodenal inflammation. Peritoneum: There is no intraperitoneal free air or abdominal ascites. There is a small fat-containing umbilical hernia. Lymphadenopathy: None. Pelvic viscera: The bladder is decompressed and not well evaluated. The uterus and adnexa are normal as imaged. Skeletal structures: No lytic or blastic lesions are seen. IMPRESSION: 1. There is only trace residual periduodenal inflammation. Findings of duodenitis seen on 06/15/2022 have almost completely resolved. 2. No intraperitoneal free air is seen. 3. Hepatomegaly and hepatic steatosis. 4. Trace pleural effusions. 5. A small volume of ascites has resolved. ACT 112: Negative or not required by law. Electronically signed by: Carlitos Kohler M.D. 06/18/2022 3:03 PM Cholangiopancreatography MRI 06/19/22 08:46 MR MRCP HISTORY: 42 years-old Female abdominal pain . Generalized abdominal pain with nausea and vomiting COMPARISON: CT abdomen and pelvis 06/18/2022, MRCP 05/27/2013 TECHNIQUE: MRCP without the use of IV contrast was obtained according to institutional protocol. FINDINGS: Mildly motion degraded exam. Trace pericardial and pleural effusions. The spleen is mildly enlarged at 13.7 cm. Unremarkable adrenal glands, and pancreas. No pancreatic ductal dilation, interstitial or peripancreatic inflammation. No peripancreatic fluid collections or lesions. Cholecystectomy. Mild hepatomegaly. Dilated common bile duct measures up to 10 mm. No biliary strictures or filling defects to suggest choledocholithiasis. No definite residual periduodenal inflammation identified or significant duodenal wall thickening. Unremarkable soft tissues and imaged osseous structures. IMPRESSION: 1. Cholecystectomy. Dilation of the common bile duct is redemonstrated which is presumably on a postoperative basis. 2. No choledocholithiasis identified. 3. The previously described periduodenal inflammatory changes appear to have resolved. Findings are compatible with a resolving duodenitis. ACT 112: Negative or not required by law. The above report was generated using voice recognition software. It may contain grammatical, syntax or spelling errors. Electronically signed by: Mehrdad Moody M.D. 06/19/2022 2:39 PM Medications Administered Current Inpatient Medications Acetaminophen (Acetaminophen 325 Mg Tab) 650 mg PO Q4H PRN PRN Reason: Mild pain or Fever Stop: 07/15/22 21:50 Last Admin: 06/19/22 16:19 Dose: 650 mg Hydrocodone Bitart/Acetaminophen (Hydrocodone/Acetamophen 5/325mg Tab) 1 tab PO Q4H PRN PRN Reason: Moderate Pain 4,5,6 Stop: 07/01/22 09:29 Last Admin: 06/20/22 08:21 Dose: 1 tab Dicyclomine HCl (Dicyclomine Hcl 10 Mg Cap) 10 mg PO TID PRN PRN Reason: abdominal pain Stop: 07/18/22 13:59 Escitalopram Oxalate (Escitalopram Oxalate 20 Mg Tab) 20 mg PO QPM [place] Stop: 07/15/22 20:59 Last Admin: 06/19/22 21:03 Dose: 20 mg Hydromorphone HCl (Hydromorphone Inj 0.5 Mg/0.5 Ml Syr) 0.5 mg IV Q3R PRN PRN Reason: Severe Pain 7,8,9,10 Stop: 07/03/22 12:56 Last Admin: 06/19/22 17:36 Dose: 0.5 mg Lactated Ringer's (Lr) 1,000 mls @ 60 mls/hr IV .[id number] [facility] Stop: 07/15/22 18:14 Last Infusion: 06/19/22 06:57 Dose: Infused Metronidazole (Flagyl) 500 mg in 100 mls @ 100 mls/hr IV Q8H [facility] Stop: 06/21/22 15:59 Last Infusion: 06/20/22 05:34 Dose: Infused Promethazine HCl 6.25 mg/ (Sodium Chloride) 50.25 mls @ 201 mls/hr IV Q6H PRN PRN Reason: Nausea And Vomiting Stop: 07/15/22 19:25 Last Infusion: 06/19/22 00:52 Dose: Infused Ceftriaxone Sodium 2,000 mg/ (Dextrose) 70 mls @ 100 mls/hr IV Q24H [facility]; Protocol Stop: 06/21/22 20:59 Last Infusion: 06/19/22 22:37 Dose: Infused Potassium Phosphate 30 mmol/ (Sodium Chloride) 510 mls @ 88 mls/hr IV ONE ONE Stop: 06/20/22 14:17 Last Admin: 06/20/22 09:06 Dose: 88 mls/hr Ipratropium [place] (Ipratropium [place] Neb Soln 0.02% 2.5 Ml Vial) 0.5 mg INH Q4H PRN PRN Reason: Shortness Of Breath Or Wheezing Stop: 07/17/22 22:44 Last Admin: 06/18/22 20:00 Dose: 0.5 mg Ketorolac Tromethamine (Ketorolac Tromethamine 15 Mg/Ml Vial) 15 mg IV Q6H PRN PRN Reason: Moderate Pain (4, 5, 6) Stop: 06/24/22 16:27 Lactobacillus Acidophilus (Advanced Probiotic 1250 Mg Capsule) 2 cap PO DAILY [facility] Stop: 07/16/22 08:59 Last Admin: 06/20/22 08:22 Dose: 2 cap Levalbuterol HCl (Levalbuterol 1.25mg/0.5ml Neb) 1.25 mg INH Q4H PRN PRN Reason: Shortness Of Breath Or Wheezing Stop: 07/17/22 22:44 Last Admin: 06/18/22 20:00 Dose: 1.25 mg Lorazepam (Lorazepam 0.5 Mg Tab) 0.5 mg PO HS PRN PRN Reason: insomnia Stop: 07/15/22 23:42 Last Admin: 06/19/22 22:38 Dose: 0.5 mg Metoclopramide HCl (Metoclopramide Hcl Inj 5 Mg/Ml 2 Ml Vial) 5 mg IV Q6H [facility] Stop: 06/20/22 17:59 Last Admin: 06/20/22 06:13 Dose: 5 mg Multivitamins (Multivitamin Tab) 1 tab PO QAM [facility] Stop: 07/17/22 08:59 Last Admin: 06/20/22 08:22 Dose: 1 tab Ondansetron HCl (Ondansetron Inj 2 Mg/Ml 2 Ml Vial) 4 mg IV Q6H PRN PRN Reason: Nausea Stop: 07/15/22 21:50 Last Admin: 06/18/22 18:34 Dose: 4 mg Pantoprazole Sodium (Pantoprazole 40 Mg Tab) 40 mg PO BID [facility] Stop: 07/19/22 20:59 Last Admin: 06/20/22 08:22 Dose: 40 mg Polyethylene Glycol (Polyethylene (Miralax) 17 Gm Pack) 17 gm PO DAILY PRN PRN Reason: Constipation Stop: 07/15/22 21:50 Polyethylene Glycol (Polyethylene (Miralax) 17 Gm Pack) 17 gm PO DAILY [facility] Stop: 07/18/22 11:14 Last Admin: 06/20/22 08:21 Dose: 17 gm Sucralfate (Sucralfate 1 Gm/10 Ml Udc) 1 gm PO QID [facility] Stop: 07/18/22 12:59 Last Admin: 06/20/22 08:22 Dose: 1 gm
--- NOTE | 2022-06-20 11:09 | Gastroenterology Progress Note ---
Date of Service June 20, 2022 Assessment & Plan (1) Pancreatitis: Plan: 42 year old female with a history of pancreatitis, sphincter of Oddi dysfunction, s/p sphincterotomy in the past, who presents with abdominal pain, nausea, vomiting, and questionable findings of duodenitis versus pancreatitis on CT imaging Plan for EGD/EUS +/- ERCP as OP. Pt is tolerating a low fat diet and would like discharge. No GI contraindication to discharge today. Our office will contact her to arrange.Continue Carafate and Bentyl 10 mg TID Admission and Anticipated Discharge Date Admission Date: June 15, 2022 Supervising Physician Co-Signing Physician Notes Pain better Agreeable to going home PE as documented Agree with further plan of care as documented. Subjective Patient with history of SOD, prior ERCP in 2013 w sphincterotomy. Admitted w pain typical of pancreatitis,N/V. CT w pancreatitis. MRCP w dilated bile duct, no stones. "better today." She says that she is overall 90% improved compared to when she was admitted. She would like to be discharge and undergo EUS/ERCP as an OP in the next month. Review of Systems Review of Systems: ROS: Gen: Denies weakness, fevers, weight loss Eyes: No eye redness, or pain, no recent vision changes Resp: No SOB, no cough Cardio: No palpitations/irregular beats, no chest pain GI: Per HPI, otherwise (-). : Denies pain on urination Skin: No jaundice, itching or new rashes Physical Exam Constitutional: WD/WN, vitals as above ENMT: external ear and nose normal, oropharynx normal Neck: trachea midline, no thyromegaly Respiratory: normal respiratory effort, lungs clear to auscultation Cardiovascular: RRR, no murmur, no edema Gastrointestinal (Abdomen): mild epigastric tenderness, soft, non distended Skin: no rashes, warm and dry Neurologic: PERRL, EOMI, accommodation nl, no face palsy, no dysarthria Psychiatric: A+Ox3, euthymic affect Lymphatic: no cervical or axillary lymphadenopathy Results & Data ([facility]) Vital Signs (Past 12 Hours) Vital Signs Temp Pulse Resp BP Pulse Ox O2 Del Method 06/20/22 08:04 37.1 C 68 21 115/79 95 Room Air 06/20/22 04:00 37 C 81 16 99/63 L 96 Room Air Laboratory Results WBC 11.7, Hb 12.4, Hct 37, Plts 296, Na 137, K 3.3, Cl 104, CO2 28, BUN 9, Cr 0.65, glucose 106. Diagnostic Findings MRCP 06/20/22: 1. Cholecystectomy. Dilation of the common bile duct is redemonstrated which is presumably on a postoperative basis. 2. No choledocholithiasis identified. 3. The previously described periduodenal inflammatory changes appear to have resolved. Findings are compatible with a resolving duodenitis. CTAP 06/18/22: 1. There is only trace residual periduodenal inflammation. Findings of duodenitis seen on 06/15/2022 have almost completely resolved. 2. No intraperitoneal free air is seen. 3. Hepatomegaly and hepatic steatosis. 4. Trace pleural effusions. 5. A small volume of ascites has resolved.
--- NOTE | 2022-06-20 12:59 | Discharge Summary ---
Date of Service June 20, 2022 Admission HPI Per Admitting Provider This is a 42-year-old female with PMH of duodenal papillary stenosis, IBS, gastroparesis and other medical problems listed below who presents with abdominal pain starting at 1 PM this afternoon. 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 Fletcher). Has not been seen by [facility] since 2013 because symptoms completely resolved at that point in time. Today around 1 PM, developed severe epigastric pain described as a burning and stabbing pain that was nonradiating but associated with nausea and vomiting. Pain is very similar to previous episodes of duodenitis prior to sphincterotomy in 2012. Denies any fever, chills, headache, chest pain, shortness of breath, dysuria, diarrhea or constipation. Has not had alcohol to drink in a few weeks and is an occasional drinker at baseline. History of cholecystectomy. Admission Exam Per Admitting Provider General Appearance:WD/WN, vitals as above, NAD, sitting up in bed, pleasant, conversing easily Head: normocephalic, atraumatic Eyes:normal inspection, PERRL, conjunctivae normal, anicteric sclerae ENT: external ear and nose normal, dry mucous membranes of oropharynx Neck: normal visual inspection, trachea midline, no thyromegaly Respiratory:normal respiratory effort, lungs clear to auscultation, no wheeze, rales, rhonchi. No accessory muscle use Cardiovascular: tachycardic rate, regular rhythm, no murmur, normal peripheral pulses, no BLE edema. Vessels: no JVD Chest: normal inspection of chest Abdomen/GI: normal bowel sounds, soft, +epigastric TTP, no guarding, no hepatosplenomegaly Extremities/Musculoskeletal: no cyanosis or clubbing, extremities motor strength 5/5 Neurologic: PERRL, EOMI, accommodation nl, no face palsy, no dysarthria, CN's II-XI intact bilaterally and moves all extremities Psychiatric:A+Ox3, euthymic affect Skin: no rashes, normal color, warm/dry Principal Diagnosis gastric dysmotility Discharge Exam General- oriented x 3, not in distress, speaks in sentences with no effort or accessory muscle use Eyes- anicteric Neck- no JVD Lungs- clear breath sounds bilaterally, no rales/wheezes Heart- normal rate, regular rhythm; no murmurs Abdomen- normal bowel sounds, nondistended, soft, no epigastric tenderness Extremities- no pretibial edema, no calf tenderness Neuro- alert, oriented x 3; no gross focal neurologic deficits Skin- warm & dry Discharge Data Allergies Allergy/AdvReac Type Severity Reaction Status Date / Time chlordiazepoxide Allergy Intermediate facial Verified 10/23/21 13:09 swelling latex Allergy Intermediate ITCHING Verified 10/23/21 13:09 AND SKIN REDNESS ranitidine Allergy Intermediate facial Verified 10/23/21 13:09 swelling egg Allergy Unknown PT UNSURE Verified 10/23/21 13:09 REACTION ; TESTED + EGG ALLERGY ON ALLERGY TESTING piperacillin Allergy Unknown PT UNSURE Verified 10/23/21 13:09 ABOUT THIS, NOT SURE IF ALLERGIC tazobactam Allergy Unknown PT UNSURE Verified 10/23/21 13:09 ABOUT THIS, NOT SURE IF ALLERGIC erythromycin base AdvReac Mild GI UPSET Verified 10/23/21 13:09 Consultations 06/15/22 17:54 ED Decision to Admit Stat 06/15/22 18:07 Consult Gastroenterology Routine Ordered Studies 06/15/22 16:11 CT Abd and Pelvis [CT abd pelvis IV con only] Stat 06/18/22 13:46 CT Abd and Pelvis [CT abd pelvis wo con] Stat 06/19/22 08:46 MRI MRCP [MR MRCP] Routine Hospital Course (1) Abdominal pain: - Sudden onset epigastric abdominal pain with associated nausea and vomiting - CT abd/pelvis with nonspecific trace free fluid throughout the abdomen. No edema or fat stranding is seen about the pancreatic body and tail. Findings are similar nonspecific but may represent duodenitis or head pancreatitis - treated for both pancreatitis and duodenitis with IVF and abx - ceftriaxone and flagyl for 7-10 days - will make last day of abx 06/21/[address] 06/18/2022 with du odenitis almost completely resolved - s/p PPI IV BID --> now PO BID, will discharge on 40mg daily - pain control - advance diet as tolerated - now tolerating regular diet - GI following - MRCP negative - likely for outpatient EGD/ERCP pending results of MRCP - LFTs and lipase wnl - likely with underlying dysmotility like gastroparesis - responded well to Reglan and now abdominal pain, n/v resolved, tolerating regular diet - ok for discharge with GI follow up (2) Sphincter of Oddi dysfunction: - had sphincterectomy 2012 with resolution of symptoms until this presentation - MRCP negative - GI following - planning for OP EGD (3) History of pancreatitis: - not since sphincterectomy 2012 - s/p aggressive IVF - repeat CT-AP 06/19/2022 without evidence of pancreatitis - noted (4) IBS (irritable bowel syndrome): - noted (5) Anxiety: - continue citalopram Plan DVT Ppx: SCDs, Frequent ambulation Code status: FULL PCP: Rachel Dispo: Plan to discharge home likely today 06/20/2022 Joshua Newton MD [facility] Medicine Total Time Total Time Spent Total Time Spent (In Minutes): 25 Total Time Includes: Examination of the Patient, Discharge Planning and Medication Reconciliation Discharge Plan Discharge Items Patient Disposition: Home - Self-Care Reason For Visit: SEPSIS 2/2 POSSIBLE DUODENITIS, ABD PAIN Discharge Diagnosis: GI dysmotility Activity: Resume your previous activity Non-emergency contact: Primary Care Provider and Broadcast Operations Technician Call non-emergency contact if: you have any medication questions and your symptoms worsen Follow-up/Referrals: [facility] [Other] (The [facility] office will call you with an appointment.) Nohelia Ramos, [Primary Care Provider] - (Date & Time 06/26/2022 1:20 PM Provider Sahil Mead MD [facility] ) Diet: Heart Healthy and Low Fat Addtl Attending Provider Instructions: You were admitted for abdominal pain with nausea and vomiting, unable to tolerate oral feeding. You were seen by GI and had an MRCP that was negative for gall bladder obstruction. You were started on Reglan (metoclopramide) to help with GI motility. Your symptoms seemed to improve with this medication. You diet was advanced and your abdominal pain improved. You were ok for discharge home with GI and Primary care follow up. You should have a gastric emptying study to assess your gastric motility with the GI specialists. Pending Studies at Discharge: No Stand-Alone Forms: My [employer], Smoking Cessation Medications and DC Order Prescriptions: New polyethylene glycol 3350 [Miralax] 17 gram Powder In Packet 17 g PO DAILY PRN (Reason: constipation) Qty: 14 0RF sucralfate 100 mg/mL Suspension 1 g PO QID Qty: 400 0RF pantoprazole 40 mg Tablet,Delayed Release (Dr/Ec) 40 mg PO DAILY Qty: 30 0RF dicyclomine 10 mg Capsule 10 mg PO TID PRN (Reason: abdominal crampin) Qty: 14 0RF metoclopramide HCl [Reglan] 5 mg tablet 5 mg PO ACHS PRN (Reason: nausea and vomiting) Qty: 20 0RF Rx Instructions: take with meals NEEDED for abdominal pain, nausea and vomiting hydrocodone-acetaminophen 5-325 mg Tablet 1 tab PO Q4H PRN (Reason: pain) Qty: 5 0RF Continued escitalopram oxalate [Lexapro] 10 mg tablet 20 mg PO QPM multivitamin Capsule 1 cap PO QAM Probiotic 10 billion cell Capsule 10,000 mmu cells PO DAILY Discharge Orders: Discharge Order (Routine); Ordered 06/20/22 Ordered By: Joshua Newton Admission Data Admit Date/Time: 06/15/22 18:23 Attending Provider: Joshua Newton Admit Provider: Brian Sánchez Primary Care Provider: Nohelia Ramos Other Providers: Brian Sánchez ; Doug Alvarez
--- NOTE | 2022-06-22 05:47 | Electrocardiogram Report ---
Test Reason : Blood Pressure : / mmHG Vent. Rate : 071 BPM Atrial Rate : 071 BPM P-R Int : 188 ms QRS Dur : 084 ms QT Int : 404 ms P-R-T Axes : 021 022 043 degrees QTc Int : 439 ms Normal sinus rhythm Normal ECG When compared with ECG of 26-MAY-2013 23:11, No significant change was found Confirmed by Rowdy Marcos ([id number]) on 06/22/2022 5:47:12 AM Referred By: REFERRED SELF Confirmed By:Rowdy Marcos
--- NOTE | 2022-06-29 10:25 | Coding Query ---
SEPSIS To promote full compliance with coding requirements relating to patient care, physician participation is requested in all cases of sericulture teacher uncertainty. Please assist us with the question(s) below: In responding to this query, please exercise your independent professional judgement. The fact that a question is asked does not imply that any particular answer is desired or expected. We appreciate your clarification on this issue. The medical record reflects the following clinical findings: Patient admitted with possible acute pancreatitis/duodenitis. DS = stated gastric motility disorder. Progress note 06/16 documented Sepsis . Please check below, if applicable - the diagnosis that was treated. Thanks for your help! KEYLA Casarez [facility] ____ ( )Bacteremia (Nonspecific laboratory finding of bacteria in the blood) Specify Organism ( ) Present on Admission ( ) Not present on admission ( ) Unable to clinically determine ( ) Septicemia (Systemic disease associated with the presence of pathogenic microorganisms in the blood): Specify Organism () Present on Admission () Not present on admission () Unable to clinically determine ( ) Sepsis Specify Organism Specify Associated Condition/Diagnosis ( ) Present on Admission ( ) Not present on admission ( ) Unable to clinically determine ( ) Severe Sepsis (Sepsis associated with acute organ dysfunction) Specify Organism Specify Associated Condition/Diagnosis ( ) Present on Admission ( ) Not present on admission ( ) Unable to clinically determine ( ) Septic Shock (Severe sepsis with acute circulatory failure, unexplained by other causes) ( ) Present on Admission ( ) Not present on admission (x) Other, patient has: gastric dysmotility, did not have sepsis MTDD
--- NOTE | 2022-06-29 10:31 | Coding Query ---
CODING QUERY To promote full compliance with coding requirements relating to patient care, provider participation is requested in all cases of maintenance service supervisor uncertainty. Please assist us with the question(s) below: Coding Question(s): Pt admitted wiith abdominal pain,, characteristic of previous admissions. Discharge Summary stated gastric motility as reason for admission. Progress notes documented acute pancreatitis - possible identified on initial CT scan, not identified on 2nd CT scan. Please document, if known or suspected, the phrase that pertains to the pancreatitis. Thanks for your help. Chapito Solitario [facility] Physician's Response(s): the patient was treated for acute pancreatitis ____x____ the patient did not have pancretitis cannot clinically correlate if the patient had pancreatitis Other: Please document: Principal Diagnosis: "that condition established after study, to be chiefly responsible for occasioning the admission of the patient to the hospital for care." Co-Existing Principal Diagnosis: "when two or more diagnoses equally meet the criteria for principal diagnosis as determined by the circumstances of admission, diagnostic work up, and/or therapy provided, and the Alphabetic Index, Tabular List, or another coding guideline does not provide sequencing direction, any one of the diagnoses may be sequenced first." "When the physician has documented what appears to be a current diagnosis in the body of the record, but has not included the diagnosis in the final diagnostic statement, the physician should be asked whether the diagnosis should be added." (Source Coding [facility] 2 QTR90. p3-4) [email or web address]
== END 2022-06-20 15:38 | disposition home or self-care (01) | DRG 392 ==
LOC: ED 13:50 → SUATTDRO 18:23 → 2N 18:23